=== PATIENT | female | born 1955 | race Caucasian/White ===

== ENCOUNTER 2019-09-07 08:54 | Outpatient (CLI) | payer BC, SELFPAY ==
[2019-09-07 09:37] LABS: Hematocrit 37.6 % (37.0-47.0); Hemoglobin 12.4 g/dL (12.0-15.0); Mean Corpuscular Hemoglobin 31.4 pg (26-34); Mean Corpuscular Volume 95.2 fl (80-100); Mean Platelet Volume 9.7 fl (7.4-10.4); Platelet Count Result 216 k/mm3 (150-375); Red Blood Count 3.95 M/mm3 (4.2-5.4); Red Cell Distribution Width 12.6 % (11.5-14.5); White Blood Count 5.1 K/mm3 (4.5-10.0)
[2019-09-07 09:43] LABS: Add Urine Microscopic? YES; Appearance Urine Clear (Clear); Bilirubin Urine Negative (Negative); Blood Urine 1+ (Negative); Color Urine Yellow (Yellow); Glucose Urine UA Negative (Negative); Ketones Urine Negative (Negative); Leukocyte Esterase Ur 1+ LEU/UL (NEGATIVE); Nitrate Urine Negative (Negative); Protein Urine Negative (Negative); Squamous Epithelial Cell Urine Occasional /hpf (Few); Urobilinogen Urine Negative mg/dL (<2.0); WBC Urine 0-3 /hpf (0-3)
[2019-09-07 09:46] LABS: Alanine Aminotransferase 16 U/L (4-35); Albumin Level 4.4 g/dL (3.5-5.1); Alkaline Phosphatase 70 U/L (38-126); Aspartate Amino Transferase 24 U/L (14-36); Bilirubin,Total 0.5 mg/dL (0.2-1.3); Blood Urea Nitrogen 22 mg/dL (7-17); Calcium 9.5 mg/dL (8.4-10.2); Carbon Dioxide 31 mmol/L (22-30); Chloride 97 mmol/L (98-107); Cholesterol 271 mg/dL (0-200); Estimated Glomerular Filt Rate > 60; Glucose 93 mg/dL (65-105); HDL Direct 66 mg/dL; Potassium 4.5 mmol/L (3.4-5.0); Sodium 138 mmol/L (137-145); Triglycerides 74 mg/dL (<150)
[2019-09-07 09:57] LABS: LDL Cholesterol Direct 158 mg/dL
== END 2019-09-07 08:55 | disposition home or self-care (01) ==
LOC: ANHLAB 08:57
PROVIDERS: PCP Family Medicine; Visit Provider Physician Assistant
DX: Z00.00 Encounter for general adult medical examination without abnormal findings (principal); I10 Essential (primary) hypertension; E78.5 Hyperlipidemia, unspecified; E03.9 Hypothyroidism, unspecified; L40.50 Arthropathic psoriasis, unspecified
CPT/HCPCS: 36415; 80053; 80061; 81001; 84443; 85027

== ENCOUNTER 2020-11-09 09:23 | Outpatient (CLI) | payer MEDICARE, SELFPAY ==
[2020-11-09 09:42] LABS: Hematocrit 37.3 % (37.0-47.0); Hemoglobin 12.3 g/dL (12.0-15.0); Mean Platelet Volume 9.1 fl (7.4-10.4); Platelet Count Result 228 k/mm3 (150-375); Red Blood Count 3.97 M/mm3 (4.2-5.4); Red Cell Distribution Width 13.1 % (11.5-14.5); White Blood Count 4.1 K/mm3 (4.5-10.0)
[2020-11-09 09:52] LABS: Hemoglobin A1C 5.5 % (<5.7)
[2020-11-09 09:57] LABS: Alanine Aminotransferase 16 U/L (4-35); Albumin Level 4.4 g/dL (3.5-5.1); Alkaline Phosphatase 55 U/L (38-126); Anion Gap 6 mmol/L (8-16); Aspartate Amino Transferase 25 U/L (14-36); Bilirubin,Total 0.5 mg/dL (0.2-1.3); Blood Urea Nitrogen 22 mg/dL (7-17); Calcium 9.4 mg/dL (8.4-10.2); Carbon Dioxide 32 mmol/L (22-30); Chloride 98 mmol/L (98-107); Cholesterol 257 mg/dL (0-200); Estimated Glomerular Filt Rate > 60; Glucose 97 mg/dL (65-105); HDL Direct 74 mg/dL; Potassium 4.3 mmol/L (3.4-5.0); Sodium 136 mmol/L (137-145); Triglycerides 86 mg/dL (<150)
[2020-11-09 10:11] LABS: LDL Cholesterol Direct 142 mg/dL
== END 2020-11-09 09:24 | disposition home or self-care (01) ==
PROVIDERS: PCP Family Medicine; Visit Provider Family Medicine
DX: E11.9 Type 2 diabetes mellitus without complications (principal); E78.5 Hyperlipidemia, unspecified; E03.9 Hypothyroidism, unspecified; I10 Essential (primary) hypertension; R53.83 Other fatigue; R73.01 Impaired fasting glucose
CPT/HCPCS: 36415; 80053; 80061; 83036; 84443; 85027

== ENCOUNTER 2021-01-05 11:47 | Outpatient (CLI) | payer MEDICARE, SELFPAY ==
--- NOTE | 2021-01-05 12:28 | ECG_ITS ---
Measurements Intervals [place] Rate: 73 P: 27 CO: 188 QRS: -34 QRSD: 96 T: 46 QT: 388 QTc: 430 Interpretive Statements SINUS RHYTHM LEFT AXIS DEVIATION CANNOT RULE OUT SEPTAL INFARCT, AGE INDETERMINATE BASELINE ARTIFACT- I, II, AVR, AVL ABNORMAL ECG Electronically Signed On 01-05-2021 13:11:01 [employer] by Rogelio Blanchard D.O.
[2021-01-05 12:56] LABS: Basophils Absolute Auto 0.1 K/mm3 (0.0-0.1); Eosinophils Absolute Auto 0.1 K/mm3 (0-0.3); Eosinophils Percent Auto 2.5 % (0-4.4); Hematocrit 36.6 % (37.0-47.0); Hemoglobin 12.2 g/dL (12.0-15.0); Immature Granulocyte Absolute 0.03 K/mm3 (0.00-0.031); Immature Granulocyte Percent A 0.6 % (0-0.5); Lymphocytes Absolute Auto 0.97 K/mm3 (0.9-3.2); Lymphocytes Percent Auto 18.8 % (18.3-44.2); Mean Corpuscular HGB Conc 33.3 g/dl (32-36); Mean Corpuscular Hemoglobin 31.4 pg (26-34); Mean Corpuscular Volume 94.3 fl (80-100); Mean Platelet Volume 9.4 fl (7.4-10.4); Monocytes Absolute Auto 0.6 K/mm3 (0.1-0.6); Monocytes Percent Auto 10.8 % (2.6-8.5); Neutrophils Absolute Auto 3.4 K/mm3 (1.3-6.7); Neutrophils Percent Auto 66.3 % (45.5-73.1); Platelet Count Result 215 k/mm3 (150-375); Red Blood Count 3.88 M/mm3 (4.2-5.4); Red Cell Distribution Width 12.9 % (11.5-14.5); White Blood Count 5.2 K/mm3 (4.5-10.0)
[2021-01-05 12:59] LABS: Add Urine Microscopic? YES; Appearance Urine Clear (Clear); Bilirubin Urine Negative (Negative); Blood Urine Negative (Negative); Color Urine Straw (Yellow); Glucose Urine UA Negative (Negative); Ketones Urine Negative (Negative); Leukocyte Esterase Ur Negative LEU/UL (Negative); Nitrate Urine Negative (Negative); Protein Urine Negative (Negative); Specific Grav Ur 1.021 (1.001-1.035); Urobilinogen Urine Negative mg/dL (<2.0); WBC Urine 0-3 /hpf
[2021-01-05 13:06] LABS: Albumin Level 4.5 g/dL (3.5-5.1); Anion Gap 8 mmol/L (8-16); Blood Urea Nitrogen 25 mg/dL (7-17); Calcium 9.5 mg/dL (8.4-10.2); Carbon Dioxide 32 mmol/L (22-30); Chloride 100 mmol/L (98-107); Estimated Glomerular Filt Rate > 60; Glucose 100 mg/dL (65-105); INR 0.9; Potassium 3.8 mmol/L (3.4-5.0); Prothrombin Time 12.7 Seconds (11.1-14.7); Sodium 140 mmol/L (137-145)
[2021-01-05 13:07] LABS: Partial Thromboplastin Time 28.2 SECONDS (22.3-36.8)
[2021-01-05 13:08] LABS: Urine Cotinine NEGATIVE
== END 2021-01-05 11:48 | disposition home or self-care (01) ==
LOC: ANHSURGERY 11:52
PROVIDERS: PCP Family Medicine; Visit Provider Orthopaedic Surgery
DX: M17.10 Unilateral primary osteoarthritis, unspecified knee (principal); Z01.818 Encounter for other preprocedural examination; R94.31 Abnormal electrocardiogram [ECG] [EKG]
CPT/HCPCS: 80048; 80307; 81001; 82040; 85025; 85610; 85730; 86850; 86900; 86901; 87081; 93005

== ENCOUNTER → 2021-01-09 00:59 | Outpatient (CLI) | payer MEDICARE, SELFPAY ==
[2021-01-09 19:48] LABS: SARS-CoV-2 RNA PCR Negative
== END ==
PROVIDERS: PCP Family Medicine; Visit Provider Orthopaedic Surgery
DX: Z01.812 Encounter for preprocedural laboratory examination (principal); Z20.822 Contact with and (suspected) exposure to COVID-19
CPT/HCPCS: C9803; U0003; U0005

== ENCOUNTER 2021-01-12 00:34 | Day surgery (SDC) | payer MEDICARE, SELFPAY ==
[2021-01-05 12:06] VITALS: BMI 22.4
[2021-01-12] VITALS (21 sets, daily range): BP systolic 113–138; BP diastolic 57–79; PULSE 8–95; RESP 10–20; TEMP 36–37.3; O2SAT 91–100
--- NOTE | ~2021-01-12 | XR_ITS ---
EXAMINATION: XR knee RT 2V DATE: 01/12/2021 11:37 INDICATION: Total right knee arthroplasty. Postop. TECHNIQUE: 2 views of right knee were obtained. COMPARISON: Right knee radiographs 10/26/2020 FINDINGS: There is a total right knee arthroplasty in near-anatomic alignment without patellar resurf acing. No fracture. There is gas in the knee joint and soft tissues, consistent with recent surgery. Anterior skin renee are noted. IMPRESSION: 1. Total right knee arthroplasty in near-anatomic alignment. Reviewed, dictated and finalized at location A. HER CASE FINISHER
[2021-01-12] MEDS: ACETAMINOPHEN 500 MG TABLET 1000 MG PO (06:41)
--- NOTE | 2021-01-12 07:04 | P.PNAN_ITS ---
Anes - Initial Pre Proc Eval Procedure: Operation Date: 01/12/21 08:30 Proposed Procedures p Right Total Knee Arthroplasty With Left Knee Cortisone Injection - Fawad Tracey MD Date/Time: 01/12/21 07:04 Surgeon: Fawad Tracey MD Pre Op Diagnosis: Right Knee DJD Patient Data Age: 65 Gender: F Height: 1.6 m Weight: 57.5 kg Allergies Allergy/AdvReac Type Severity Reaction Status Date / Time No Known Allergies Allergy Verified 01/12/21 06:39 Home Medications Medication Instructions Recorded Confirmed Type levothyroxine 50 mcg tablet 50 mcg PO DAILY #90 tablet 11/19/20 01/12/21 Rx lisinopril 10 1 tablet PO DAILY #90 tablet 11/19/20 01/12/21 Rx mg-hydrochlorothiazide 12.5 mg tablet chlorhexidine gluconate 4 % 1 applic TOPICAL ONCE #237 ml 12/14/20 01/05/21 Rx topical liquid Patient hx anesthesia problems: none Family hx anesthesia problems: none PMFSH Past Medical History Medical History Actinic keratitis Arthritis Benign microscopic hematuria Bilateral knee pain Degenerative joint disease of knee H/O seborrheic keratosis HLD (hyperlipidemia) Hypertension Hypothyroidism Wears glasses Surgical History Surgical History History of abdominal hysterectomy History of surgical amputation of finger of right hand Surgery Performed by [facility]. Orthopedic [facility] Family History Family History Mother Hypertension Other Arthritis Depression Social History Social History Smoking status: Never smoker Second hand tobacco smoke exposure: No Alcohol intake: never Substance use: never Substance use type: does not use Living arrangements: with family Additional living arrangements comments: LIVES WITH 7 ADOPTIVE [address] Gender identity (if verbalized by the patient): Female Spiritual care concerns: No Anes - Eval Final PreProcedure Day of Procedure 01/12/21 07:04 Patient weight: normal Heart: regular rate and rhythm Lungs: clear to auscultation and normal air movement Airway: Mallampati scale class II Neurological: alert and oriented Last oral intake: >/= 8 hours ASA classification: II Emergent: no Anesthetic plan: proceed Anesthesia type and monitoring: general LMA Informed Consent: The patient's anesthetic plan and its attendant risks and benefits were discussed with the patient/family/POA. Questions were solicited and answers provided to the satisfaction of the patient/family/POA.
[2021-01-12] MEDS: LACTATED RINGERS 1,000 ML 30 ML IV CONT ×2 (07:06→11:30)
[2021-01-12] MEDS: TRANEXAMIC ACID 1,000MG/ISO100 1,000 MG/100 ML BAG 200 MG IVPB (08:21)
--- NOTE | 2021-01-12 08:21 | SUR.PREOP ---
Up to bathroom.
--- NOTE | 2021-01-12 08:36 | WPDHPUPDATE1 ---
History and Physical Update Update Date/Time: 01/12/21 08:36 History and Physical has been reviewed, including an updated exam of the patient. There are NO changes in the patient's condition. Risks, benefits, and alternatives have been discussed and questions answered. Patient agrees to proceed with procedure.
[2021-01-12] MEDS: ceFAZolin 2 GM/D5W 50 ML 2 GM/50 ML BAG IVPB ×2 (08:56→17:08)
--- NOTE | 2021-01-12 08:57 | WPDANESPNB ---
Anes - Peripheral Nerve Block Date/Time: 01/12/21 08:57 I have discussed with the patient/family/POA the placement of a peripheral nerve block for post-operative pain management, including associated risks, benefits, complications, and side effects. Alternative methods of post-operative analgesia were detailed. Questions were solicited and answers provided to the satisfaction of the patient/family/POA. Time-Out: A pre-procedural Time-Out was completed immediately before starting the procedure and confirmed: Patient Identification, Site, Procedure, Patient Position and the Availability of Requisite Equipment. Clinical Indications: Acute post-operative pain management requested by the operative surgeon. Nerve Block Insertion Note Anes-nerve block: adductor canal right Patient position: supine Skin prep: chlorhexidine Needle: 22 gauge, stimulating, insulated echogenic needle. Needle length: 80 mm Technique: ultrasound Technique comment: in plane Injectate: bupivacaine 0.25% with epi 5 mcg/ml (30cc) Observations: tolerated well Complications: none Procedure start time:: 845 Procedure end time:: 850
[2021-01-12] MEDS: methylPREDNISolone ACETATE 80 MG/ML VIAL IM (09:12)
[2021-01-12] MEDS: GENTAMICIN BONE CEMENT REFOBACIN 1 EACH TOPICAL (10:09)
[2021-01-12] MEDS: ceFAZolin SODIUM 1 GM VIAL IV PUSH (10:38)
--- NOTE | 2021-01-12 11:27 | PM.PROC ---
Procedure Note - Detailed Date of procedure: 01/12/21 Pre-op diagnosis: Right Knee DJD, LEFT KNEE DJD Post-op diagnosis: same Procedure performed: RIGHT TKA, LEFT KNEE INJECTION Description of procedure: THE LEFT KNEE WAS PREPPED STERILE AND THEN 1cc DEPO MEDROL 80MG, AND 5cc MARCAINE 0.5% WAS INJECTED INTO THE LEFT KNEE. THE RIGHT KNEE WAS THEN PREPPED AND DRAPED IN THE STERILE FASHION. A MIDLINE SKIN INCISION WAS MADE. A MEDIAL PARAPATELLAR ARTHROTOMY WAS MADE. THE PATELLA WAS EVERTED. THERE WAS TRICOMPARTMENT DJD. THERE WAS MINIMAL PATELLA DJD. AN INTRAMEDULLARY RACHEL WAS PLACED IN THE FEMUR. A DISTAL FEMORAL CUT WAS MADE IN 5 DEGREES OF VALGUS REMOVING APPROXIMATELY 9 MM OF BONE FROM THE DISTAL FEMUR. THE FEMUR WAS SIZED TO 60. A 60 FEMORAL CUTTING BLOCK WAS PLACED IN 3 DEGREES OF EXTERNAL ROTATION AND IN ALIGNMENT WITH PRIMITIVO'S LINE AND THE TRANSEPICONDYLAR AXIS. ANTERIOR POSTERIOR AND CHAMFER CUTS WERE MADE. THE CUTS WERE EXCELLENT. NEXT AN INTRAMEDULLARY CUTTING GUIDE WAS PLACED IN THE TIBIA. A TRANS TIBIAL CUT WAS MADE ALONG THE LONG AXIS OF THE TIBIA. APPROXIMATELY 10 MM OF BONE WAS REMOVED FROM THE HIGH SIDE OF THE TIBIA. THE TIBIA WAS THEN PLANED TO A SMOOTH SURFACE. POSTERIOR FEMORAL OSTEOPHYTES WERE REMOVED FROM THE FEMORAL CONDYLES. A 71 TIBIAL TRIAL WAS PLACED IN ALIGNMENT WITH THE 1/3 MEDIAL ASPECT OF THE TIBIAL TUBERCLE. THEN A 60 FEMORAL TRIAL COMPONENT WAS PLACED. BOTH HAD EXCELLENT FIT. EVENTUALLY A 12 MM POLYETHYLENE TRIAL COMPONENT WAS PLACED. THE KNEE WAS TAKEN THROUGH A RANGE OF MOTION. THE KNEE CAME OUT TO FULL EXTENSION. THERE WAS NO ABNORMAL TILT TO THE PATELLA. THERE WAS GOOD A/P AND VARUS/VALGUS STABILITY. THERE WAS NO EXCESSIVE ROLL BACK WITH FLEXION. THE TRIAL COMPONENTS WERE REMOVED. THEN A 60 FEMORAL COMPONENT AND 71 TIBIAL COMPONENT WITH A 12 CR POLYETHYLENE COMPONENT WERE CEMENTED INTO PLACE. THE IMPLANTS WERE FLUSH WITH THE CUT BONE SURFACES. THE KNEE WAS TAKEN THROUGH A ROM AGAIN AND FOUND TO BE STABLE WITH NO PATELLA TILT NO EXCESSIVE ROLL BACK WITH FLEXION AND GOOD STABILITY WITH COMPLETE AND FULL EXTENSION. THE KNEE WAS IRRIGATED WITH STERILE BETADINE AND WATER FOR ABOUT 3 MINUTES. THE BLEEDERS WERE CAUTERIZED. THE ARTHROTOMY WAS REPAIRED WITH NUMBER 1 VICRYL. THE SUB CUTANEOUS LAYER WITH 2-0 VICRYL AND THE SKIN WITH MERISSA. THE WOUND WAS WASHED AND A STERILE DRESSING WAS APPLIED. PATIENT WAS EXTUBATED. Anesthesia: GETA Surgeon: Fawad Tracey MD Estimated blood loss (mL): 100 Complications: No immediate complications Condition: stable Disposition: PACU
[2021-01-12] MEDS: HYDROmorphone HCL INJ (*CRX) 1 MG/ML SYR 0.25 MG IV PUSH ×2 (12:23→12:28)
[2021-01-12] MEDS: ONDANSETRON INJ 4 MG/2 ML VIAL IV PUSH (12:45)
[2021-01-12] MEDS: HALOPERIDOL LACTATE 5 MG/ML VIAL 1 MG IV PUSH (13:38)
[2021-01-12] MEDS: SCOPOLAMINE 1.5 MG PATCH TRANSDERM (13:38)
--- NOTE | 2021-01-12 14:54 | PCPTNOTE ---
Patient still in PACU, nauseated and will be admitted later this afternoon, will wait to perform PT evaluation until tomorrow morning.
--- NOTE | 2021-01-12 15:10 | ADMGEN ---
This patient, Karley Dang, was admitted to 2 Medical Room 260-. Patient/family oriented to hospital policies and general routines including ID bracelet, bed and alarms, visiting hours, pain management, procedures, bathroom and other care routines, personal items, smoking policy, room service/diet, and visiting hours. Information on how to activate the Rapid Response Team has been discussed. Patient/Family are encouraged to report perceived risks to care and to ask questions if they do not understand what they are told or what they should do.
[2021-01-12] MEDS: oxyCODONE HCL (*CRX) 5 MG TAB IR PO (15:59)
[2021-01-12] MEDS: diazePAM (*CRX) 5 MG TABLET PO (17:07)
[2021-01-12] MEDS: DOCUSATE SODIUM 100 MG CAPSULE PO (17:07)
[2021-01-12] MEDS: CELECOXIB 200 MG CAPSULE PO (17:08)
[2021-01-12] MEDS: FAMOTIDINE 20 MG TABLET PO (19:36)
[2021-01-12] MEDS: oxyCODONE HCL (*CRX) 2.5 MG TAB IR 7.5 MG PO (19:36)
[2021-01-13] MEDS: ceFAZolin 2 GM/D5W 50 ML 2 GM/50 ML BAG IVPB ×2 (00:15→08:21)
[2021-01-13] MEDS: oxyCODONE HCL (*CRX) 2.5 MG TAB IR 7.5 MG PO ×2 (00:48→06:05)
[2021-01-13 04:00] VITALS: BP 132/65; PULSE 91; RESP 18; TEMP 36.6; O2SAT 98
[2021-01-13 05:50] LABS: Basophils Percent Auto 0.4 % (0.2-1.2); Eosinophils Percent Auto 0.2 % (0-4.4); Hematocrit 31.6 % (37.0-47.0); Hemoglobin 10.5 g/dL (12.0-15.0); Immature Granulocyte Absolute 0.02 K/mm3 (0.00-0.031); Immature Granulocyte Percent A 0.2 % (0-0.5); Lymphocytes Percent Auto 10.5 % (18.3-44.2); Mean Corpuscular HGB Conc 33.2 g/dl (32-36); Mean Corpuscular Hemoglobin 30.5 pg (26-34); Mean Corpuscular Volume 91.9 fl (80-100); Mean Platelet Volume 9.6 fl (7.4-10.4); Monocytes Percent Auto 11.7 % (2.6-8.5); Neutrophils Absolute Auto 6.6 K/mm3 (1.3-6.7); Platelet Count Result 198 k/mm3 (150-375); Red Blood Count 3.44 M/mm3 (4.2-5.4); Red Cell Distribution Width 12.7 % (11.5-14.5); White Blood Count 8.6 K/mm3 (4.5-10.0)
[2021-01-13] MEDS: LEVOTHYROXINE SODIUM 50 MCG TABLET PO (06:02)
[2021-01-13 06:08] LABS: Anion Gap 4 mmol/L (8-16); Blood Urea Nitrogen 15 mg/dL (7-17); Calcium 8.5 mg/dL (8.4-10.2); Carbon Dioxide 31 mmol/L (22-30); Chloride 97 mmol/L (98-107); Estimated CRCL calculation 57 ml/min; Estimated Glomerular Filt Rate > 60; Glucose 123 mg/dL (65-105); Potassium 3.9 mmol/L (3.4-5.0); Sodium 132 mmol/L (137-145)
--- NOTE | 2021-01-13 08:00 | WPDANESPN ---
Anes - Prog Note Post-Op Date/Time: 01/13/21 08:00 Cardiovascular status: normal Respiratory status: normal Airway patency: baseline Mental status: baseline Post-Op hydration status: normal Vital Signs: Last Vital Signs Temp 36.6 C 01/13/21 04:00 Pulse 91 01/13/21 04:00 Resp 18 01/13/21 04:00 BP 132/65 01/13/21 04:00 Pulse Ox 98 01/13/21 04:00 Pain Score (VAS): 02/13 I/O: Intake & Output 01/12/21 01/13/21 01/13/21 23:59 07:59 15:59 Intake Total 650 200 Output Total 600 500 Balance 50 -300 Laboratory Tests 01/13/21 05:02 01/13/21 05:02 01/13/21 01/13/21 05:02 05:02 WBC 8.6 RBC 3.44 L Hgb 10.5 L Hct 31.6 L MCV 91.9 MCH 30.5 MCHC 33.2 RDW 12.7 Plt Count 198 MPV 9.6 Immature Gran % (Auto) 0.2 Neut % (Auto) 77.0 H Lymph % (Auto) 10.5 L [place] % (Auto) 11.7 H Eos % (Auto) 0.2 Baso % (Auto) 0.4 Lymph # (Auto) 0.90 [place] # (Auto) 1.0 H Eos # (Auto) 0.0 Baso # (Auto) 0.0 Abs Immat Gran (auto) 0.02 Absolute Neuts (auto) 6.6 Absolute Nucleated RBC 0.0 Nucleated RBC % 0.0 Sodium 132 L Potassium 3.9 Chloride 97 L Carbon Dioxide 31 H Anion Gap 4 L BUN 15 D Creatinine 0.70 Estim Creat Clear Calc 57 Estimated GFR > 60 Glucose 123 H Calcium 8.5 Post-procedural complaints: nausea Patient Feedback: Patient satisfied with anesthetic care.
[2021-01-13] MEDS: ASPIRIN 325 MG ENTERIC TABLET 650 MG PO (08:20)
[2021-01-13] MEDS: diazePAM (*CRX) 5 MG TABLET PO (08:20)
[2021-01-13] MEDS: hydroCHLOROthiazide 12.5 MG CAPSULE PO (08:20)
[2021-01-13] MEDS: lisinopriL 10 MG TABLET PO (08:20)
[2021-01-13] MEDS: DOCUSATE SODIUM 100 MG CAPSULE PO (08:20)
[2021-01-13] MEDS: FAMOTIDINE 20 MG TABLET PO (08:20)
[2021-01-13] MEDS: CELECOXIB 200 MG CAPSULE PO (08:20)
[2021-01-13] MEDS: ACETAMINOPHEN 500 MG TABLET 1000 MG PO ×2 (09:19→14:58)
[2021-01-13 09:49] VITALS: O2SAT 99
[2021-01-13 10:00] VITALS: BP 136/60; PULSE 79; RESP 18; TEMP 37.1; O2SAT 100
[2021-01-13] MEDS: oxyCODONE/ACETAMINOPHEN (*CRX) 5-325 MG TABLET 1 TABLET PO ×2 (11:32→17:31)
--- NOTE | 2021-01-13 12:43 | PCPTNOTE ---
Changed frequency on order clarification from OD 5-7 days/week to BID 5-7 days/week to correct frequency for ortho pt.
[2021-01-13 12:55] VITALS: BP 125/54; PULSE 82; RESP 16; TEMP 36.9; O2SAT 98
--- NOTE | 2021-01-13 17:28 | PM.PNORT ---
Progress Note: A&P Additional Plan POD 1 DOING WELL. OK TO DC HOME F/U IN 2 WEEKS. Subjective Subjective Date/Time Seen: 01/13/21 17:28 POD 1 DOING WELL, GOOD PROGRESS WITH PT, NO CALF PAIN Review of Systems Review of Systems: All systems reviewed & are unremarkable except as noted in HPI and below Exam Extrem: Other: VSS AFEBRILE DRESSING DRY NV INTACT NEG HOMANS SIGN, CALF SOFT NON TENDER Objective Data Vital Signs Vital Signs: Vital Signs - 24 hr 01/12/21 20:00 01/12/21 23:58 01/13/21 04:00 Temperature 36.3 C L 36.7 C 36.6 C Pulse Rate 88 95 91 Respiratory Rate 16 16 18 Blood Pressure 137/67 129/61 132/65 Pulse Oximetry 97 100 98 01/13/21 09:49 01/13/21 10:00 01/13/21 12:55 Temperature 37.1 C 36.9 C Pulse Rate 79 82 Respiratory Rate 18 16 Blood Pressure 136/60 125/54 L Pulse Oximetry 99 100 98 Intake/Output Intake/Output: Intake & Output 01/10/21 01/11/21 01/12/21 01/13/21 23:59 23:59 23:59 23:59 Intake Total 1500 490 Output Total 600 500 Balance 900 -10 Meds/Results Medications: Active Medications Generic Name Dose Route Start Last Admin Trade Name Freq PRN Reason Stop Dose Admin Acetaminophen 1,000 mg 01/12/21 15:31 01/13/21 14:58 Acetaminophen 500 Mg Tablet PO 1,000 mg Q6H PRN Administration Pain Rated 1-3 Aspirin 650 mg 01/13/21 09:00 01/13/21 08:20 Aspirin 325 Mg Enteric Tablet PO 650 mg DAILY BERT Administration Celecoxib 200 mg 01/12/21 17:00 01/13/21 08:20 Celecoxib 200 Mg Capsule PO 200 mg BIDWM BERT Administration Diazepam 5 mg 01/12/21 15:31 01/13/21 08:20 Diazepam (*Crx) 5 Mg Tablet PO 5 mg Q8H PRN Administration Spasms Diphenhydramine HCl 25 mg 01/12/21 15:31 Diphenhydramine Hcl Inj 50 Mg/Ml Vial IV PUSH Q6H PRN Itching Docusate Sodium 100 mg 01/12/21 17:00 01/13/21 08:20 Docusate Sodium 100 Mg Capsule PO 100 mg BID BERT Administration Famotidine 20 mg 01/12/21 21:00 01/13/21 08:20 Famotidine 20 Mg Tablet PO 20 mg Q12HR BERT Administration Hydrochlorothiazide 12.5 mg 01/12/21 09:00 01/13/21 08:20 Hydrochlorothiazide 12.5 Mg Capsule PO 12.5 mg DAILY BERT Administration Levothyroxine Sodium 50 mcg 01/13/21 06:30 01/13/21 06:02 Levothyroxine Sodium 50 Mcg Tablet PO 50 mcg DAILY@0630 BERT Administration Lisinopril 10 mg 01/12/21 09:00 01/13/21 08:20 Lisinopril 10 Mg Tablet PO 02/12/21 09:01 10 mg DAILY BERT Administration Naloxone HCl 0.1 mg 01/12/21 15:31 Naloxone Hcl 0.4 Mg/Ml Vial IV PUSH Q2M PRN Opiate Reversal Ondansetron HCl 4 mg 01/12/21 15:31 Ondansetron Inj 4 Mg/2 Ml Vial IV PUSH Q4H PRN Nausea And Vomiting Oxycodone HCl 5 mg 01/12/21 11:36 01/12/21 15:59 Oxycodone Hcl (*Crx) 5 Mg Tab Ir PO 5 mg ONCE PRN Administration Pain Rated 7-10 Oxycodone HCl 7.5 mg 01/12/21 15:31 01/13/21 06:05 Oxycodone Hcl (*Crx) 2.5 Mg Tab Ir PO 7.5 mg Q4H PRN Administration Pain Rated 7-10 Oxycodone/Acetaminophen 1 tablet 01/12/21 15:31 01/13/21 11:32 Oxycodone/Acetaminophen (*Crx) 5-325 Mg Tablet PO 1 tablet Q4H PRN Administration Pain Rated 4-6 Radiology Results: ITS Impressions Knee X-Ray 01/12/21 12:02 IMPRESSION: 1. Total right knee arthroplasty in near-anatomic alignment. Labs Labs: Laboratory Results - last 24 hr 01/13/21 01/13/21 05:02 05:02 WBC 8.6 RBC 3.44 L Hgb 10.5 L Hct 31.6 L MCV 91.9 MCH 30.5 MCHC 33.2 RDW 12.7 Plt Count 198 MPV 9.6 Immature Gran % (Auto) 0.2 Neut % (Auto) 77.0 H Lymph % (Auto) 10.5 L [place] % (Auto) 11.7 H Eos % (Auto) 0.2 Baso % (Auto) 0.4 Lymph # (Auto) 0.90 [place] # (Auto) 1.0 H Eos # (Auto) 0.0 Baso # (Auto) 0.0 Abs Immat Gran (auto) 0.02 Absolute Neuts (auto) 6.6 Absolute Nucleated RBC 0.0 Nucleated RBC % 0.0 Sodium 132 L Potassium 3.9 [place]
--- NOTE | 2021-01-13 17:31 | PM.DS ---
DS: Admitting Diagnosis Admitting Diagnosis Admitting Diagnosis: RIGHT KNEE DJD DS: Discharge Diagnosis Discharge Diagnosis (1) Aftercare following knee joint replacement surgery: Qualifiers: Laterality: right Qualified Code(s): Z47.1 - Aftercare following joint replacement surgery; Z96.651 - Presence of right artificial knee joint Code(s): Z47.1 - Aftercare following joint replacement surgery; Z96.659 - Presence of unspecified artificial knee joint Status: Acute DS: Summary Hospital Course Reason for hospitalization: RIGHT TKA Hospital Course: PATIENT WAS ADMITTED FOR PAIN CONTROL AFTER KNEE REPLACEMENT. SHE DID WELL WITH PAIN MEDS AND ALSO WITH PT. SHE REMAINED STABLE AND WAS READY FOR DC ON POD 1. SHE HAD NO SIGN OF INFECTION, HER DRESSING WAS CHANGED BY MY SELF. SHE HAD NO OTHER COMPLAINTS. Time spent discussing smoking cessation with patient: 3 to 10 minutes Status at Discharge Functional status at discharge: uses cane/walker Overall status at discharge: patient is not back to baseline Time Spent with Patient Time attestation: Total time spent providing and/or coordinating discharge services: Time spent: Less than 30 minutes DS: Data Data Completed and Pending Labs on day of discharge: Labs from last 24 hours 01/13/21 01/13/21 05:02 05:02 WBC 8.6 RBC 3.44 L Hgb 10.5 L Hct 31.6 L MCV 91.9 MCH 30.5 MCHC 33.2 RDW 12.7 Plt Count 198 MPV 9.6 Immature Gran % (Auto) 0.2 Neut % (Auto) 77.0 H Lymph % (Auto) 10.5 L [place] % (Auto) 11.7 H Eos % (Auto) 0.2 Baso % (Auto) 0.4 Lymph # (Auto) 0.90 [place] # (Auto) 1.0 H Eos # (Auto) 0.0 Baso # (Auto) 0.0 Abs Immat Gran (auto) 0.02 Absolute Neuts (auto) 6.6 Absolute Nucleated RBC 0.0 Nucleated RBC % 0.0 Sodium 132 L Potassium 3.9 Chloride 97 L Carbon Dioxide 31 H Anion Gap 4 L BUN 15 D Creatinine 0.70 Estim Creat Clear Calc 57 Estimated GFR > 60 Glucose 123 H Calcium 8.5 Discharge Plan Discharge Patient Disposition: Home Health Service Discharge Instructions: HOME PT TO EVALUATE AND TREAT PATIENT DRESSING CHANGE PER HOME NURSE AT POD 2 THEN LEAVE FOR 5 DAYS THEN CHANGE. KEEP ON TILL POD 14 AND STAPLE REMOVAL Per Care Coordination: [facility] has been arranged and will contact you prior to their first visit. [facility] can be contacted at [phone]. Patient Instructions: Antibiotic Form, Pain Management (DC), Joint Replacement Surgery (DC), Knee Replacement (DC) Stand Alone Forms: General Discharge Information, General Discharge Instructions Follow-up/Referrals: Fawad Tracey MD [Physician] - 3 Weeks Discharge Medications: New oxycodone-acetaminophen [Percocet] 7.5-325 mg tablet 1 tablet PO Q6H PRN (Reason: pain) Qty: 60 RF: 0 diazepam [Valium] 5 mg tablet 5 mg PO BID PRN (Reason: muscle spasm) Qty: 30 RF: 0 celecoxib [Celebrex] 200 mg capsule 200 mg PO BID PRN (Reason: pain) Qty: 30 RF: 0 Continued lisinopril-hydrochlorothiazide 10-12.5 mg tablet 1 tablet PO DAILY Qty: 90 RF: 2 levothyroxine 50 mcg tablet 50 mcg PO DAILY Qty: 90 RF: 2 chlorhexidine gluconate [Hibiclens] 4 % liquid 1 applic topical ONCE Qty: 237 RF: 0
== END 2021-01-13 18:15 | disposition home health service (06) ==
LOC: ANHSURGERY 11:48 → ANH2MED 14:57
PROVIDERS: PCP Family Medicine; Visit Provider Orthopaedic Surgery
PROC: (CPT 27447; principal; 2021-01-12 08:30)
DX: M17.0 Bilateral primary osteoarthritis of knee (principal); G89.18 Other acute postprocedural pain; I10 Essential (primary) hypertension; E78.5 Hyperlipidemia, unspecified; E03.9 Hypothyroidism, unspecified
CPT/HCPCS: 27447; 20610; 64447; 36415; 73560; 80048; 85025; 97110; 97116; 97161; 97165; 97530; A9270; C1713; C1776; J0171; J0690; J1040; J1100; J1170; J1630; J2250; J2270; J2370; J2405; J2704; J2795; J3010; J7120

== ENCOUNTER 2021-06-05 10:01 | Emergency (ER) | payer MEDICARE, SELFPAY ==
[2021-06-05 10:09] VITALS: BP 132/70; PULSE 96; RESP 20; TEMP 36.6; O2SAT 100
--- NOTE | 2021-06-05 10:33 | ED.SKABFB ---
HPI - Skin/Abscess/Foreign Bdy General Chief complaint: Skin/Abscess/Foreign Body Stated complaint: RASH History of Present Illness HPI narrative: The patient, previously mostly healthy on routine meds, presents with skin eruption. Patient states she has 1/2-week history of truncal rash that is pink, itchy bordering on painful. No fever, sore throat, travel history, insect bite, new meds [only on levothyroxine, lisinopril]; symptoms are mild, worse with scratching. Its now beginning to expand up and down with impetiginous/crusting component on her chest/anterior trunk. Discussed causes [infectious, acquired, allergic, etc.] and will treat broadly Related Data Allergies Allergy/AdvReac Type Severity Reaction Status Date / Time No Known Allergies Allergy Verified 03/15/21 14:10 Review of Systems Review of Systems: General/Constitutional: No weight loss,fever Eyes: N0: Redness,discharge Ears/Nose/Throat: No: Epistaxis,ear discharge Respiratory: Denies: Hemoptysis Gastrointestinal: No Vomiting, Bleeding-rectal Skin: No Lumps, REPORTS eruption Neurologic: No Focal Weakness,Sz Hematologic: Denies: Petechiae/Purpura Psychiatric: No: Suicida ideationl All Other Systems: Reviewed and Negative [facility] Past Medical History Medical History Actinic keratitis Aftercare following right knee joint replacement surgery Arthritis Benign microscopic hematuria Bilateral knee pain Degenerative joint disease of knee H/O seborrheic keratosis HLD (hyperlipidemia) Hypertension Hypothyroidism Wears glasses Surgical History Surgical History History of abdominal hysterectomy History of surgical amputation of finger of right hand Surgery Performed by [facility]. Orthopedic group S/P total knee arthroplasty right S/P total knee replacement Family History Family History Mother Hypertension Other Arthritis Depression Social History Social History (Updated 03/15/21 @ 14:11 by Kandi Barrera MA) Smoking status: Never smoker Second hand tobacco smoke exposure: No Alcohol intake: never Substance use: never Substance use type: does not use Additional living arrangements comments: LIVES WITH 7 ADOPTIVE CHILDREN Gender identity (if verbalized by the patient): Female Spiritual care concerns: No Comments At time of signature, agree with nursing past medical, surgical, social and family history. There is no relevant family history pertinent to the presenting complaint Exam Narrative: General Appearance: Well nourished, Normocephalic Eye: PERRLA, Conjunctiva clear Ear: External ear normal Nose: Normal nose, Nare clear Mouth/Throat: Normal appearing Neck Exam: Supple Respiratory: Airway patent, No respiratory distress Musculoskeletal: Moves all extremities, Non tender Spine/Back: Normal ROM Skin: Warm, Dry; blanching maculopapular eruption on trunk and extremities with impetiginous component and crusting on chest Neurological: A&O x3 Normal affect Course Vital Signs Vital signs: Vital Signs Temperature 97.9 F 06/05/21 10:09 Pulse Rate 96 06/05/21 10:09 Respiratory Rate 20 06/05/21 10:09 Blood Pressure 132/70 06/05/21 10:09 Pulse Oximetry 100 06/05/21 10:09 Temperature 97.9 F 06/05/21 10:09 Pulse Rate 96 06/05/21 10:09 Respiratory Rate 20 06/05/21 10:09 Blood Pressure 132/70 06/05/21 10:09 Pulse Oximetry 100 06/05/21 10:09 Discharge Plan Discharge Clinical Impression: Acute eruption of skin Patient Disposition: Home, Self-Care Condition: Stable Instructions: Antibiotic Form, Acute Rash (ED) Additional Instructions: Keep photo log of area Take clindamycin with food, antacid and/or probiotic; stop if diarrhea occurs Prescriptions: New clindamycin HCl 300 mg
== END 2021-06-05 10:43 | disposition home or self-care (01) ==
PROVIDERS: Emergency Provider Emergency Medicine; PCP Family Medicine
DX: R21 Rash and other nonspecific skin eruption (principal); M19.90 Unspecified osteoarthritis, unspecified site; M17.10 Unilateral primary osteoarthritis, unspecified knee; E78.5 Hyperlipidemia, unspecified; I10 Essential (primary) hypertension; E03.9 Hypothyroidism, unspecified; Z96.651 Presence of right artificial knee joint
CPT/HCPCS: 99213; G0463

== ENCOUNTER 2021-09-19 19:55 | Observation (INO) | payer MEDICARE, SELFPAY ==
[2021-09-19] VITALS (11 sets, daily range): BP systolic 116–137; BP diastolic 58–77; PULSE 86–106; RESP 12–20; TEMP 36.1–36.3; O2SAT 99–100
--- NOTE | ~2021-09-19 | CT_ITS ---
EXAMINATION: CT abdomen pelvis w con EXAM DATE: 09/19/2021 21:40 INDICATION: Abdominal pain. Nausea vomiting diarrhea. Rectal bleeding. TECHNIQUE: Spiral CT of the abdomen and pelvis was performed following intravenous injection of 100 m L Omnipaque 350. Axial, coronal and sagittal images of the abdomen and pelvis were reviewed. The do se-length product (DLP) for this examination was 311.24 mGy-cm. The exposure was tailored according to patient size (auto mA exposure control), and iterative reconstruction (ASIR) was used as additiona l dose reduction technique. Comparison is made to prior examination from 08/28/2018. FINDINGS: The liver, spleen, adrenal glands and pancreas are unremarkable. Gallbladder is unremarkab le. No biliary obstruction. Portal and splenic veins are patent. There are prominent venous varicos ities at the left renal hilum more pronounced than in 2018. Kidneys enhance symmetrically. There is no hydronephrosis. The uterus is not identified and has likely been surgically resected. Suspect sm all amount of pelvic prolapse. The bladder is unremarkable. There is no retroperitoneal or pelvic l ymphadenopathy. There is mild scattered arteriosclerotic disease. The appendix is not positively visualized. There is no pericecal inflammatory change to suggest appe ndicitis. The stomach and small bowel are unremarkable. There is severely edematous splenic flexur e and descending colonic wall without pneumatosis. Mild edema of these rectosigmoid colon. Appearance is consistent with colitis, most likely infectious but recommend correlating with lactate levels. No free intraperitoneal gas. The heart is normal in size. There are no pericardial or pleural effu sions. The lung bases are unremarkable. There are no osteoblastic or osteolytic lesions identified. IMPRESSION: 1. Left hemicolonic colitis. 2. Probable mild pelvic prolapse. 3. Left renal perihilar varices. Reviewed, dictated and finalized at location B. [facility]
[2021-09-19 20:29] LABS: Hematocrit 39.5 % (37.0-47.0); Hemoglobin 13.4 g/dL (12.0-15.0); Mean Corpuscular HGB Conc 33.9 g/dl (32-36); Mean Corpuscular Hemoglobin 31.2 pg (26-34); Mean Corpuscular Volume 91.9 fl (80-100); Mean Platelet Volume 9.2 fl (7.4-10.4); Platelet Count Result 240 k/mm3 (150-375); Red Cell Distribution Width 13.2 % (11.5-14.5)
[2021-09-19 20:38] LABS: INR 0.9
[2021-09-19 20:39] LABS: Partial Thromboplastin Time 24.8 SECONDS (22.3-36.8)
[2021-09-19 20:53] LABS: Band Neutrophils Percent 4 % (0-6); Eosinophils Absolute Manual 0.08 K/mm3 (0.02-0.5); Eosinophils Percent Manual 1 % (0-4); Monocytes Absolute Manual 0.32 K/mm3 (0.1-0.90); Monocytes Percent Manual 4 % (3-9); Neutrophils Percent Manual 86 % (46-73); Platelet Estimate Adequate (Adequate); Total Cells Counted 100
[2021-09-19 20:55] LABS: Alanine Aminotransferase 18 U/L (4-35); Alkaline Phosphatase 84 U/L (38-126); Anion Gap 11 mmol/L (8-16); Aspartate Amino Transferase 29 U/L (14-36); Bilirubin,Total 0.8 mg/dL (0.2-1.3); Blood Urea Nitrogen 23 mg/dL (7-17); Calcium 10.4 mg/dL (8.4-10.2); Carbon Dioxide 27 mmol/L (22-30); Chloride 100 mmol/L (98-107); Estimated CRCL calculation 43 ml/min; Estimated Glomerular Filt Rate > 60; Glucose 113 mg/dL (65-110); Lipase 56 U/L (23-300); Potassium 4.6 mmol/L (3.4-5.0); Sodium 138 mmol/L (137-145)
--- NOTE | 2021-09-19 21:16 | ED.GENADULT ---
HPI - General Adult General Chief complaint: Nausea/Vomiting/Diarrhea Stated complaint: abd pain, vomiting, bloody diarrhea Time Seen by Provider: 09/19/21 21:09 Source: RN notes reviewed History of Present Illness HPI narrative: Patient presents emergency department from home for abdominal pain. Patient states that symptoms again approximate 1 PM today. States she has diffuse abdominal pain across the mid abdomen described as cramping. States the pain does not radiate. Associated with numerous episodes of nausea vomiting as well as diarrhea that is bloody in nature. Patient states that the stool is maroon with clots she denies being on any blood thinner she denies any fevers or chills chest pain shortness of breath or any other symptoms. States she not taking medication for the symptoms at home Related Data Allergies Allergy/AdvReac Type Severity Reaction Status Date / Time No Known Allergies Allergy Verified 09/19/21 21:18 Review of Systems Review of Systems: Gen.: Denies fevers or chills ENT: Denies congestion Respiratory: Denies shortness of breath or cough CV: Denies chest pain or palpitations GI: See HPI denies burning, urgency, frequency or hematuria Musculoskeletal: Denies back pain or muscle pain Neuro: Denies numbness, tingling, weakness or focal weakness Skin: Denies rash Except as documented, all other systems reviewed and negative [facility] Past Medical History Medical History Actinic keratitis Aftercare following right knee joint replacement surgery Arthritis Benign microscopic hematuria Bilateral knee pain Degenerative joint disease of knee H/O seborrheic keratosis HLD (hyperlipidemia) Hypertension Hypothyroidism Left knee DJD Wears glasses Surgical History Surgical History History of abdominal hysterectomy History of surgical amputation of finger of right hand Surgery Performed by [facility]. Orthopedic group S/P total knee arthroplasty right S/P total knee replacement Family History Family History Mother Hypertension Other Arthritis Depression Social History Social History Second hand tobacco smoke exposure: No Alcohol intake: never Substance use: never Substance use type: does not use Additional living arrangements comments: LIVES WITH 7 ADOPTIVE CHILDREN Gender identity (if verbalized by the patient): Female Spiritual care concerns: No Exam Narrative: APPEARANCE: No acute distress, nontoxic, resting in bed HEENT: Normocephalic, atraumatic, OMM RESPIRATORY: No respiratory distress, clear to auscultation bilaterally with no rhonchi wheezing or rales CARDIOVASCULAR: RRR s murmur ABDOMINAL: Soft nondistended diffusely tender palpation no rebound or guarding Rectal: No hemorrhoids or fissures no active bleeding, maroon stool that is Hemoccult positive in rectal vault MUSCULOSKELETAl: Moves all extremities. No clubbing, cyanosis or edema. NEURO: Awake and alert. Following commands, speech normal, no focal deficits SKIN:: Warm, dry. Normal Color PSYCHIATRIC: Normal affect/mood Course Course Emergency Course: Discussed with Dr. Cast presentation work-up agrees with admission agrees with starting patient on Zosyn for colitis Discussed with Dr. Weems presentation work-up. Agrees with admission at this time Discussed with patient and family results of workup and diagnosis. Discussed need for admission. Patient and family understand and agree to current treatment plan Vital Signs Vital signs: Vital Signs Temperature 97 F L 09/19/21 20:09 Pulse Rate 104 H 09/19/21 20:09 Respiratory Rate 18 09/19/21 20:09 Blood Pressure 137/77 09/19/21 20:09 Pulse Oximetry 100 09/19/21 20:09 Temperature 97.3 F L 09/19/21 21:16 Pul
[2021-09-19 21:20] LABS: Add Urine Microscopic? YES; Appearance Urine Cloudy (Clear); Bilirubin Urine Negative (Negative); Color Urine Yellow (Yellow); Glucose Urine UA Negative (Negative); Ketones Urine 1+ mg/dL (Negative); Leukocyte Esterase Ur 1+ LEU/UL (Negative); Mucus Urine Rare /lpf; Nitrate Urine Negative (Negative); Protein Urine Negative (Negative); RBC Urine 0-2 /hpf (0-2); Specific Grav Ur 1.018 (1.001-1.035); Squamous Epithelial Cell Urine Rare /hpf (Few); Urobilinogen Urine Negative mg/dL (<2.0)
[2021-09-19 21:21] LABS: Blood Urine Negative (Negative)
[2021-09-19] MEDS: ONDANSETRON INJ 4 MG/2 ML VIAL IV PUSH (21:26)
[2021-09-19] MEDS: SODIUM CHLORIDE 0.9% IV 1,000 ML 999 ML IV CONT (21:26)
--- NOTE | 2021-09-19 23:49 | PM.IMHP ---
H&P: HPI History of Present Illness Date/Time: 09/19/21 23:49 Chief Complaint: GI bleed Narrative: This is a 66-year-old female with past medical history significant for hypothyroidism, hypertension, chronic constipation. Patient presented to the emergency room after she had several episodes of nausea vomiting of clear yellow fluid says followed by several movements of diarrhea with blood followed by Maroon colored stools with abdominal pain localized to worse the mid and lower abdomen. Patient has been in her usual state of health up until this, she denies any fevers, any chills, any rigors ,cough, sputum production, shortness of breath, weight loss ,pain or burning with urination ,she is chronically constipated, no changes in stool character. Preliminary workup was significant for CT of abdomen and pelvis with area of colitis, CBC and BMP were pretty much unremarkable and she had a positive Guiac. Patient has been admitted for further management evaluation and treatment. Review of Systems Review of Systems: Nausea vomiting abdominal pain bloody bowel movements maroon-colored stools of 1 day duration several episodes Constitutional: Constitutional: Denies chills, Denies fatigue, Denies fever(s), Denies lethargy, Denies malaise, Denies night sweats and Denies weakness Eyes: Eyes: Denies change in vision ENT: Denies dysphagia, Denies vertigo, Denies dizziness, Denies nasal congestion, Denies nasal discharge, Denies nasal obstruction and Denies odynophagia Cardiovascular: Cardiovascular: Denies irregular heart rhythm, Denies lightheadedness, Denies radiating jaw, neck or arm pain, Denies palpitations, Denies dyspnea, Denies dyspnea on exertion and Denies orthopnea Respiratory: Respiratory: Denies cough and Denies dyspnea Gastrointestinal: Gastrointestinal: Reports abdominal pain, Denies melena, Reports hematochezia, Denies change in stool character, Denies coffee ground emesis, Reports GI cramping, Denies dyspepsia, Denies heartburn, Reports nausea, Reports vomiting and Denies hematemesis Comments: Maroon-colored stool Genitourinary: Genitourinary: Denies dysuria Musculoskeletal: Musculoskeletal: Denies back pain, Denies arthralgias, Denies joint swelling, Denies muscle cramps and Denies muscle weakness Integumentary/Breasts: Skin/Breast: Denies rash Neurologic: Denies syncope, Denies focal weakness, Denies Sensory deficit (Neuro) and Denies paresthesias Psychiatric: Psychiatric: Reports no additional psychiatric complaints and Reports as per HPI Endocrine: Endocrine: Reports no additional endocrine complaints and Reports as per HPI Hematologic/Lymphatic: Hematologic/Lymphatic: Reports no additional hematologic/lymphatic complaints and Reports as per HPI Allergic/Immunologic: Allergic/Immunologic: Reports no additional allergic/immunologic complaints and Reports as per HPI [facility] Past Medical History Medical History Actinic keratitis Aftercare following right knee joint replacement surgery Arthritis Benign microscopic hematuria Bilateral knee pain Degenerative joint disease of knee H/O seborrheic keratosis HLD (hyperlipidemia) Hypertension Hypothyroidism Left knee DJD Wears glasses Surgical History Surgical History History of abdominal hysterectomy History of surgical amputation of finger of right hand Surgery Performed by [facility]. Orthopedic group S/P total knee arthroplasty right S/P total knee replacement Family History Family History Mother Hypertension Other Arthritis Depression Social History Social History Smoking status: Never smoker Second hand tobacco smoke exposure: No Alcohol intake: never Substance use: never Substance use type: does not use Additional living arr
[2021-09-20] VITALS (14 sets, daily range): BP systolic 115–150; BP diastolic 50–71; PULSE 67–88; RESP 16–20; TEMP 36.2–36.7; O2SAT 97–100; BMI 21.5; BMI 23.2
[2021-09-20 02:08] LABS: Basophils Percent Auto 0.4 % (0.2-1.2); Eosinophils Percent Auto 0.2 % (0-4.4); Hematocrit 34.3 % (37.0-47.0); Hemoglobin 11.6 g/dL (12.0-15.0); Immature Granulocyte Absolute 0.01 K/mm3 (0.00-0.031); Immature Granulocyte Percent A 0.2 % (0-0.5); Lymphocytes Absolute Auto 0.44 K/mm3 (0.9-3.2); Mean Corpuscular HGB Conc 33.8 g/dl (32-36); Mean Corpuscular Volume 91.7 fl (80-100); Mean Platelet Volume 9.3 fl (7.4-10.4); Monocytes Absolute Auto 0.4 K/mm3 (0.1-0.6); Monocytes Percent Auto 8.6 % (2.6-8.5); Neutrophils Percent Auto 81.6 % (45.5-73.1); Platelet Count Result 207 k/mm3 (150-375); Red Blood Count 3.74 M/mm3 (4.2-5.4); Red Cell Distribution Width 13.2 % (11.5-14.5); White Blood Count 4.9 K/mm3 (4.5-10.0)
[2021-09-20 02:18] LABS: Alanine Aminotransferase 15 U/L (4-35); Albumin Level 4.3 g/dL (3.5-5.1); Alkaline Phosphatase 68 U/L (38-126); Anion Gap 10 mmol/L (8-16); Aspartate Amino Transferase 24 U/L (14-36); Bilirubin,Total 0.8 mg/dL (0.2-1.3); Blood Urea Nitrogen 21 mg/dL (7-17); Calcium 9.6 mg/dL (8.4-10.2); Carbon Dioxide 24 mmol/L (22-30); Chloride 103 mmol/L (98-107); Estimated CRCL calculation 48 ml/min; Estimated Glomerular Filt Rate > 60; Glucose 99 mg/dL (65-110); Potassium 4.2 mmol/L (3.4-5.0); Sodium 137 mmol/L (137-145)
[2021-09-20] MEDS: LEVOTHYROXINE SODIUM 50 MCG TABLET PO (06:05)
[2021-09-20] MEDS: SODIUM CHLORIDE 0.9% IV 1,000 ML 125 ML IV CONT ×2 (06:08→20:28)
[2021-09-20] MEDS: ACETAMINOPHEN 500 MG TABLET PO ×2 (06:27→20:28)
[2021-09-20 07:52] LABS: Hematocrit 34.7 % (37.0-47.0); Hemoglobin 11.7 g/dL (12.0-15.0)
--- NOTE | 2021-09-20 11:42 | PM.IMPN ---
Progress Note: A&P Assessment and Plan (1) Colitis: Code(s): K52.9 - Noninfective gastroenteritis and colitis, unspecified Status: Acute Assessment and Plan: [facility] consulted, will await recommendations Supportive care with pain meds and antiemetics, will add norco (2) GI bleed: Code(s): K92.2 - Gastrointestinal hemorrhage, unspecified Status: Acute Assessment and Plan: H/H Stable 11.7/34.7 Continue to monitor (3) Hypertension: Code(s): I10 - Essential (primary) hypertension Status: Acute Assessment and Plan: Stable Continue home med Hold for SBP <90 Monitor (4) Hypothyroidism: Code(s): E03.9 - Hypothyroidism, unspecified Status: Acute Assessment and Plan: Continue Synthroid (5) Degenerative joint disease of knee: Qualifiers: Osteoarthritis type: primary Laterality: bilateral Qualified Code(s): M17.0 - Bilateral primary osteoarthritis of knee Code(s): M17.10 - Unilateral primary osteoarthritis, unspecified knee Status: Acute Assessment and Plan: Status post knee arthroplasty (6) Rheumatoid arthritis in remission: Code(s): M06.9 - Rheumatoid arthritis, unspecified Status: Acute Assessment and Plan: On no DMARDs Follow-up in outpatient setting Subjective Date/time seen: 09/20/21 11:42 Interval history: Pt seen this a.m.; lab, vs, diagnostic reports reviewed; pt continues with abdominal pain this a.m. -04/15 Review of Systems Review of Systems: All systems reviewed & are unremarkable except as noted in HPI and below Exam Const: General: no acute distress, alert and awake Orientation/consciousness: patient oriented x3 HENMT: Head: normocephalic and atraumatic Ears: hearing grossly normal bilaterally and external ears normal Face and sinus: face symmetric Mouth: Yes Normal oral and palatal mucosa present Eyes: EOM: EOMs intact bilaterally Neck: Neck: full ROM, trachea midline and no JVD Chest: Chest palpation & inspection: normal inspection of the chest Resp: Effort & Inspection: normal respiratory effort Auscultation: clear to auscultation bilaterally Cardio: Jugular venous distension: no JVD Rate: regular rate Rhythm: regular rhythm Heart sounds: S1 normal heart sound present and S2 normal heart sound present GI: Inspection: normal to inspection GI Palp: Yes Soft to palpation and Yes Tenderness to palpation present (GI) Auscultation: normal bowel sounds : General: Yes no CVA tenderness Back/Spine/Pelvis: Back: no CVA tenderness Skin: General skin exam: normal color Rashes: no rashes Neuro: General: patient oriented x3 and CN's II-XI intact bilaterally Cranial nerves: Yes Equal, round and reactive pupils present Speech: normal speech Extrem: General: full ROM and no clubbing, cyanosis or edema Psych: Appearance: grossly normal Affect: normal affect Judgement: Good judgement present (Psych) Objective Data Vital Signs Vital Signs: Vital Signs - 24 hr 09/19/21 20:09 09/19/21 21:16 09/19/21 21:17 Temperature 36.1 C L 36.3 C L Pulse Rate 104 H 106 H 100 Respiratory Rate 18 19 17 Blood Pressure 137/77 116/58 L 116/58 L Pulse Oximetry 100 100 100 09/19/21 21:18 09/19/21 22:26 09/19/21 22:39 Temperature Pulse Rate 89 90 86 Respiratory Rate 17 20 17 Blood Pressure Pulse Oximetry 100 99 09/19/21 22:45 09/19/21 23:03 09/19/21 23:15 Temperature Pulse Rate 88 89 88 Respiratory Rate 15 12 16 Blood Pressure Pulse Oximetry 100 100 100 09/19/21 23:33 09/19/21 23:45 09/20/21 00:00 Temperature Pulse Rate 89 94 85 Respiratory Rate 14 16 20 Blood Pressure Pulse Oximetry 100 100 97 09/20/21 00:01 09/20/21 00:23 09/20/21 00:29 Temperature 36.5 C Pulse Rate 84 88 Respiratory Rate 20 17 Blood Pressure 115/50 L Pulse Oximetry 100 100 09/20/21 00:45 09/20/21 04:00 09/20/21 0
[2021-09-20] MEDS: HYDROcodone/acetaminophen (*CRX) 5-325 MG TABLET 1 TAB PO (12:38)
--- NOTE | 2021-09-20 14:20 | WPDGICN ---
Assessment and Plan Assessment and plan (1) GI bleed: Code(s): K92.2 - Gastrointestinal hemorrhage, unspecified Status: Acute (2) Colitis: Code(s): K52.9 - Noninfective gastroenteritis and colitis, unspecified Status: Acute Assessment and Plan: Patient appears to have left-sided colitis causing her to have GI bleeding. Differential diagnosis of colitis and bleeding is broad but infectious colitis appears most likely. Inflammatory bowel disease and ischemic colitis cannot be totally excluded. Plan is for broad-spectrum antibiotics. A colonoscopy will be performed in the morning after some preparation this evening. We will continue to monitor patient's hemoglobin. We will hour to have a liquid diet in anticipation of colonoscopy tomorrow. GI Consult Note Consult date/time: 09/20/21 14:20 HPI: Karley Dang is a 66 year old female I am asked to see because of blood in her stools. Patient in her usual state of health yesterday while driving about noon began to have abdominal cramps and ultimately had bloody stools. This persisted throughout the night with watery bloody mucus stools. This caused her to go to the emergency room. A CT scan revealed left-sided colitis. Patient states that since midnight she had no bloody stools until noon when she developed abdominal cramps and additional bright red blood per rectum. Mostly water was passed. Patient denies any fever. Her family history is noncontributory. She does have a past history of intermittent abdominal pain cramps in bowel movements but never bleeding before. She attributed this to irritable bowel syndrome. Patient was started on Zosyn broad-spectrum antibiotic coverage last evening. She has not required transfusion as her hemoglobin has only fallen to a small degree. She has never had a screening colonoscopy prior to this. Review of Systems Review of Systems: All systems reviewed & are unremarkable except as noted in HPI and below [facility] Past Medical History Medical History Actinic keratitis Aftercare following right knee joint replacement surgery Arthritis Benign microscopic hematuria Bilateral knee pain Degenerative joint disease of knee H/O seborrheic keratosis HLD (hyperlipidemia) Hypertension Hypothyroidism Left knee DJD Wears glasses Surgical History Surgical History History of abdominal hysterectomy History of surgical amputation of finger of right hand Surgery Performed by [facility]. Orthopedic group S/P total knee arthroplasty right S/P total knee replacement Family History Family History Mother Hypertension Other Arthritis Depression Social History Social History Smoking status: Never smoker Second hand tobacco smoke exposure: No Alcohol intake: never Substance use: never Substance use type: does not use Additional living arrangements comments: LIVES WITH 7 ADOPTIVE CHILDREN Gender identity (if verbalized by the patient): Female Spiritual care concerns: No Meds Home Medications and Allergies Home Medications Medication Instructions Recorded Confirmed Type levothyroxine 50 mcg tablet 50 mcg PO DAILY #90 tablet 11/19/20 09/20/21 Rx lisinopril 10 1 tablet PO DAILY #90 tablet 11/19/20 09/20/21 Rx mg-hydrochlorothiazide 12.5 mg tablet acetaminophen 500 mg PO Q6H PRN 09/20/21 09/20/21 History acetaminophen-caffeine [Excedrin 3 tablet PO DAILY 09/20/21 09/20/21 History Aspirin Free] Allergies Allergy/AdvReac Type Severity Reaction Status Date / Time No Known Allergies Allergy Verified 09/19/21 21:18 Vital Signs Vital Signs - 24 hr 09/19/21 20:09 09/19/21 21:16 09/19/21 21:17 Temperature 97 F L 97.3 F L Pulse Rate 104 H 106 H 10
[2021-09-20] MEDS: PEG (High)/E-LYTE SOLN 4,000 ML BTL 4000 ML PO (16:30)
[2021-09-20] MEDS: ONDANSETRON INJ 4 MG/2 ML VIAL IV PUSH (18:34)
[2021-09-21] VITALS (13 sets, daily range): BP systolic 103–145; BP diastolic 52–95; PULSE 62–80; RESP 16–23; TEMP 36.1–37.1; O2SAT 97–100
[2021-09-21] MEDS: SODIUM CHLORIDE 0.9% IV 1,000 ML 125 ML IV CONT ×2 (05:07→18:30)
[2021-09-21] MEDS: LEVOTHYROXINE SODIUM 50 MCG TABLET PO (05:43)
[2021-09-21 07:20] LABS: Anion Gap 8 mmol/L (8-16); Blood Urea Nitrogen 11 mg/dL (7-17); Calcium 8.3 mg/dL (8.4-10.2); Carbon Dioxide 24 mmol/L (22-30); Chloride 107 mmol/L (98-107); Estimated CRCL calculation 54 ml/min; Estimated Glomerular Filt Rate > 60; Glucose 85 mg/dL (65-110); Potassium 3.4 mmol/L (3.4-5.0); Sodium 139 mmol/L (137-145)
[2021-09-21] MEDS: ACETAMINOPHEN 500 MG TABLET PO ×2 (08:01→21:13)
[2021-09-21] MEDS: ONDANSETRON INJ 4 MG/2 ML VIAL IV PUSH (08:01)
[2021-09-21] MEDS: hydroCHLOROthiazide 12.5 MG CAPSULE PO (08:02)
[2021-09-21] MEDS: lisinopriL 10 MG TABLET PO (08:02)
[2021-09-21] MEDS: LACTATED RINGERS 1,000 ML 150 ML IV CONT (10:13)
--- NOTE | 2021-09-21 10:17 | SUR.PREOP ---
DR MARIE NOTIFIED PT HAD A RIGHT KNEE REPLACEMENT IN JANUARY OF 2021, PT HAS BEEN ON ZOSYN EVERY 6HRS WHILE ADMITTED TO HOSPITAL, NO NEW ORDERS FOR ADDITIONAL PREOP ANTIBIOTICS.
--- NOTE | 2021-09-21 10:27 | WPDANESEPPF ---
Anes - Initial Pre Proc Eval Procedure: Operation Date: 09/21/21 11:15 Proposed Procedures p Colonoscopy - Jermaine Dent MD Date/Time: 09/21/21 10:27 Surgeon: Job Barth MD Pre Op Diagnosis: Colitis, GI Bleed Patient Data Age: 66 Gender: F Height: 1.57 m Weight: 57.7 kg Last Vital Signs Temp 98.8 F 09/21/21 10:10 Pulse 68 09/21/21 10:10 Resp 18 09/21/21 10:10 BP 132/60 09/21/21 10:10 Pulse Ox 100 09/21/21 10:10 Allergies Allergy/AdvReac Type Severity Reaction Status Date / Time No Known Allergies Allergy Verified 09/19/21 21:18 Home Medications Medication Instructions Recorded Confirmed Type levothyroxine 50 mcg tablet 50 mcg PO DAILY #90 tablet 11/19/20 09/20/21 Rx lisinopril 10 1 tablet PO DAILY #90 tablet 11/19/20 09/20/21 Rx mg-hydrochlorothiazide 12.5 mg tablet acetaminophen 500 mg PO Q6H PRN 09/20/21 09/20/21 History acetaminophen-caffeine [Excedrin 3 tablet PO DAILY 09/20/21 09/20/21 History Aspirin Free] Laboratory Tests 09/20/21 09/21/21 13:49 06:30 Hgb 11.0 g/dL L g/dL (12.0-15.0) Hct 33.0 % L % (37.0-47.0) Sodium 139 mmol/L mmol/L (137-145) Potassium 3.4 mmol/L mmol/L (3.4-5.0) Chloride 107 mmol/L mmol/L (98-107) Carbon Dioxide 24 mmol/L mmol/L (22-30) Anion Gap 8 mmol/L mmol/L (8-16) BUN 11 mg/dL D mg/dL (7-17) Creatinine 0.70 mg/dL mg/dL (0.7-1.0) Estim Creat Clear Calc 54 ml/min ml/min Estimated GFR > 60 (59 - ) Glucose 85 mg/dL mg/dL (65-110) Calcium 8.3 mg/dL L mg/dL (8.4-10.2) Patient hx anesthesia problems: none Family hx anesthesia problems: none Results Review: All pre-operative results and documents have been reviewed as part of the pre-operative evaluation. [facility] Past Medical History Medical History Actinic keratitis Aftercare following right knee joint replacement surgery Arthritis Benign microscopic hematuria Bilateral knee pain Degenerative joint disease of knee H/O seborrheic keratosis HLD (hyperlipidemia) Hypertension Hypothyroidism Left knee DJD Wears glasses Surgical History Surgical History History of abdominal hysterectomy History of surgical amputation of finger of right hand Surgery Performed by [facility]. Orthopedic group S/P total knee arthroplasty right S/P total knee replacement Family History Family History Mother Hypertension Other Arthritis Depression Social History Social History Smoking status: Never smoker Second hand tobacco smoke exposure: No Alcohol intake: never Substance use: never Substance use type: does not use Additional living arrangements comments: LIVES WITH 7 ADOPTIVE CHILDREN Gender identity (if verbalized by the patient): Female Spiritual care concerns: No Anes - Eval Final PreProcedure Day of Procedure 09/21/21 10:27 Patient weight: normal Heart: regular rate and rhythm Lungs: clear to auscultation Airway: Mallampati scale class III Neurological: alert and oriented Last oral intake: >/= 8 hours ASA classification: III Emergent: no Anesthetic plan: proceed Anesthesia type and monitoring: general GIVS and standard monitoring Results Review: All pre-operative results and documents have been reviewed as part of the pre-operative evaluation. Informed Consent: The patient's anesthetic plan and its attendant risks and benefits were discussed with the patient/family/POA. Questions were solicited and answers provided to the satisfaction of the patient/family/POA.
--- NOTE | 2021-09-21 10:34 | PC.NURSE ---
Pt went to GI Lab at 1010 for Endoscopy
--- NOTE | 2021-09-21 10:41 | PC.NURSE ---
On 09/21/21, the student, [Preet Larose ], provided care and completed [facility] documentation on this patient. I have reviewed the student's documentation and agree with the findings.
--- NOTE | 2021-09-21 15:02 | PM.IMPN ---
Progress Note: A&P Assessment and Plan (1) Colitis: Code(s): K52.9 - Noninfective gastroenteritis and colitis, unspecified Status: Acute Assessment and Plan: CT noted above Continue Zosyn GI consulted, recommendations appreciated Supportive care with pain meds and antiemetics Colonoscopy showed colitis most consistent with infectious etiology, internal hemorrhoids Continue zosyn Full liquid diet, ADAT (2) GI bleed: Code(s): K92.2 - Gastrointestinal hemorrhage, unspecified Status: Acute Assessment and Plan: H/H Stable 11.7/34.7-->1135 today Continue to monitor (3) Hypertension: Code(s): I10 - Essential (primary) hypertension Status: Acute Assessment and Plan: Stable Continue home med Hold for SBP <90 Monitor (4) Hypothyroidism: Code(s): E03.9 - Hypothyroidism, unspecified Status: Acute Assessment and Plan: Continue Synthroid (5) Degenerative joint disease of knee: Qualifiers: Osteoarthritis type: primary Laterality: bilateral Qualified Code(s): M17.0 - Bilateral primary osteoarthritis of knee Code(s): M17.10 - Unilateral primary osteoarthritis, unspecified knee Status: Acute Assessment and Plan: Status post knee arthroplasty (6) Rheumatoid arthritis in remission: Code(s): M06.9 - Rheumatoid arthritis, unspecified Status: Acute Assessment and Plan: On no DMARDs Follow-up in outpatient setting Subjective Date/time seen: 09/21/21 15:02 Interval history: 09/20 Pt seen this a.m.; lab, vs, diagnostic reports reviewed; pt continues with abdominal pain this a.m. -04/15 09/21 Pt seen and evaluated; pain is controlled; s/p colonoscopy; denies N/V; pain controlled Review of Systems Review of Systems: All systems reviewed & are unremarkable except as noted in HPI and below Exam Const: General: no acute distress, alert and awake Orientation/consciousness: patient oriented x3 HENMT: Head: normocephalic and atraumatic Ears: hearing grossly normal bilaterally and external ears normal Face and sinus: face symmetric Mouth: Yes Normal oral and palatal mucosa present Eyes: Pupils: Equal, round and reactive pupils present EOM: EOMs intact bilaterally Neck: Neck: full ROM, trachea midline and no JVD Chest: Chest palpation & inspection: normal inspection of the chest Resp: Effort & Inspection: normal respiratory effort Auscultation: clear to auscultation bilaterally Cardio: Jugular venous distension: no JVD Rate: regular rate Rhythm: regular rhythm Heart sounds: S1 normal heart sound present and S2 normal heart sound present GI: Inspection: normal to inspection Auscultation: normal bowel sounds : General: Yes no CVA tenderness Back/Spine/Pelvis: Back: no CVA tenderness Skin: General skin exam: normal color Rashes: no rashes Neuro: General: patient oriented x3 and CN's II-XI intact bilaterally Cranial nerves: Yes Equal, round and reactive pupils present Speech: normal speech Extrem: General: full ROM and no clubbing, cyanosis or edema Psych: Appearance: grossly normal Affect: normal affect Judgement: Good judgement present (Psych) Objective Data Vital Signs Vital Signs: Vital Signs - 24 hr 09/20/21 15:27 09/20/21 16:00 09/20/21 20:00 Temperature 36.7 C Pulse Rate 78 69 71 Respiratory Rate 18 Blood Pressure 126/58 L Pulse Oximetry 98 09/20/21 21:28 09/20/21 23:42 09/21/21 00:00 Temperature 36.4 C Pulse Rate 67 65 Respiratory Rate 16 Blood Pressure 150/71 H Pulse Oximetry 98 97 09/21/21 04:00 09/21/21 06:00 09/21/21 07:50 Temperature 36.1 C L Pulse Rate 62 76 Respiratory Rate 16 Blood Pressure 145/63 H Pulse Oximetry 99 100 09/21/21 08:00 09/21/21 09:30 09/21/21 10:10 Temperature 36.2 C L 36.6 C 37.1 C Pulse Rate 73 80 68 Respiratory Rate 18 16 18 Blood Pressure 126/68 110/95 H 132/60 Pulse Oximetry 100 9
[2021-09-22] MEDS: SODIUM CHLORIDE 0.9% IV 1,000 ML 125 ML IV CONT (05:06)
[2021-09-22] MEDS: LEVOTHYROXINE SODIUM 50 MCG TABLET PO (05:07)
[2021-09-22 06:00] VITALS: BP 124/60; PULSE 59; RESP 16; TEMP 36.2; O2SAT 98
[2021-09-22 06:43] LABS: Anion Gap 9 mmol/L (8-16); Blood Urea Nitrogen 6 mg/dL (7-17); Carbon Dioxide 26 mmol/L (22-30); Chloride 105 mmol/L (98-107); Estimated CRCL calculation 62 ml/min; Estimated Glomerular Filt Rate > 60; Glucose 100 mg/dL (65-110); Potassium 3.2 mmol/L (3.4-5.0); Sodium 140 mmol/L (137-145)
--- NOTE | 2021-09-22 07:20 | WPDGIPROGNO ---
Progress Note: A&P Assessment and Plan (1) Colitis: Code(s): K52.9 - Noninfective gastroenteritis and colitis, unspecified Status: Acute Assessment and Plan: Patient with localized mild left-sided colitis by endoscopy. Most consistent with infectious etiology. Patient improving clinically. Plan for discharge on a regular diet. Would complete 1 week course of antibiotics either Cipro or Flagyl after discharge. She should follow up with primary care service. Although if diarrhea or pain persists we can see her electively in the office (2) GI bleed: Code(s): K92.2 - Gastrointestinal hemorrhage, unspecified Status: Acute Assessment and Plan: GI bleeding resolved. Appears to have been from the colitis. Subjective Date/time seen: 09/22/21 07:2 patient feeling much better this morning. Tolerating diet. States abdominal pain has gone. Diarrhea has lessened a great deal. Review of Systems Review of Systems: All systems reviewed & are unremarkable except as noted in HPI and below Exam Narrative: Physical exam patient is alert comfortable at rest. HEENT exam is unremarkable. Patient is anicteric. Lungs are clear. Heart without murmur. Abdomen bowel sounds present soft nontender with no organomegaly. Objective Data Vital Signs Vital Signs: Vital Signs - 24 hr 09/21/21 07:50 09/21/21 08:00 09/21/21 09:30 Temperature 97.2 F L 97.9 F Pulse Rate 73 80 Respiratory Rate 18 16 Blood Pressure 126/68 110/95 H Pulse Oximetry 100 100 97 09/21/21 10:10 09/21/21 11:25 09/21/21 11:35 Temperature 98.8 F Pulse Rate 68 79 66 Respiratory Rate 18 23 H 19 Blood Pressure 132/60 103/52 L 110/55 L Pulse Oximetry 100 99 99 09/21/21 11:45 09/21/21 14:00 09/21/21 20:00 Temperature 97.0 F L Pulse Rate 66 72 Respiratory Rate 23 H 16 Blood Pressure 112/69 112/57 L Pulse Oximetry 100 100 100 09/21/21 21:33 09/22/21 06:00 Temperature 97.5 F L 97.2 F L Pulse Rate 73 59 L Respiratory Rate 18 16 Blood Pressure 123/54 L 124/60 Pulse Oximetry 97 98 Intake/Output Intake/Output: Intake & Output 11/1409/20/21 09/21/21 09/22/21 23:59 23:59 23:59 23:59 Intake Total 1100 1810 3980 1300 Output Total 600 3000 Balance 1100 9484 769 2828 Meds/Results Medications: Active Medications Generic Name Dose Route Start Last Admin Trade Name Freq PRN Reason Stop Dose Admin Acetaminophen 500 mg 09/20/21 05:15 09/21/21 08:01 Acetaminophen 500 Mg Tablet PO 500 mg Q6H PRN Administration Pain Rated 1-3 Acetaminophen 500 mg 09/20/21 21:00 09/21/21 21:13 Acetaminophen 500 Mg Tablet PO 500 mg HS BERT Administration Hydrocodone Bitart/Acetaminophen 1 tab 09/20/21 12:23 09/20/21 12:38 Hydrocodone/Acetaminophen (*Crx) 5-325 Mg Tablet PO 1 tab Q6H PRN Administration Pain Rated 6-10 Hydrochlorothiazide 12.5 mg 09/20/21 09:00 09/21/21 08:02 Hydrochlorothiazide 12.5 Mg Capsule PO 12.5 mg QAM BERT Administration Sodium Chloride 1,000 mls @ 125 mls/hr 09/19/21 23:50 09/22/21 05:07 Normal Saline Iv IV CONT Not Given .Q8H BERT Piperacillin/Tazobactam/Dextrose 3.375 gm in 50 mls @ 100 mls/hr 09/20/21 07:45 09/22/21 05:35 Zosyn 3.375 Gm/D5w 50ml Pm IVPB Infused Q6HR BERT Infusion Levothyroxine Sodium 50 mcg 09/20/21 06:30 09/22/21 05:07 Levothyroxine Sodium 50 Mcg Tablet PO 50 mcg DAILY@0630 BERT Administration Lisinopril 10 mg 09/20/21 09:00 09/21/21 08:02 Lisinopril 10 Mg Tablet PO 10 mg QAM BERT Administration Ondansetron HCl 4 mg 09/19/21 23:49 09/21/21 08:01 Ondansetron Inj 4 Mg/2 Ml Vial IV PUSH 4 mg Q4H PRN Administration Nausea Radiology Results: ITS Impressions Abdomen/Pelvis CT 09/20/21 08:48 IMPRESSION: 1. Left hemicolonic colitis. 2. Probable mild pelvic prolapse. 3. Left renal perihilar varices. Labs Labs: Laboratory Results - last 2
[2021-09-22 08:00] VITALS: O2SAT 100
[2021-09-22 08:12] LABS: Basophils Percent Auto 0.7 % (0.2-1.2); Eosinophils Absolute Auto 0.1 K/mm3 (0-0.3); Eosinophils Percent Auto 3.9 % (0-4.4); Hematocrit 30.3 % (37.0-47.0); Lymphocytes Absolute Auto 0.58 K/mm3 (0.9-3.2); Lymphocytes Percent Auto 20.4 % (18.3-44.2); Mean Corpuscular Hemoglobin 30.7 pg (26-34); Mean Corpuscular Volume 92.9 fl (80-100); Mean Platelet Volume 9.8 fl (7.4-10.4); Monocytes Absolute Auto 0.4 K/mm3 (0.1-0.6); Monocytes Percent Auto 14.7 % (2.6-8.5); Neutrophils Absolute Auto 1.7 K/mm3 (1.3-6.7); Neutrophils Percent Auto 60.3 % (45.5-73.1); Platelet Count Result 154 k/mm3 (150-375); Red Blood Count 3.26 M/mm3 (4.2-5.4); Red Cell Distribution Width 13.4 % (11.5-14.5); White Blood Count 2.9 K/mm3 (4.5-10.0)
[2021-09-22] MEDS: POTASSIUM CHLORIDE 20 MEQ TABLET 40 MEQ PO (08:29)
[2021-09-22] MEDS: hydroCHLOROthiazide 12.5 MG CAPSULE PO (08:30)
[2021-09-22] MEDS: lisinopriL 10 MG TABLET PO (08:30)
--- NOTE | 2021-09-22 09:30 | PM.DS ---
DS: Admitting Diagnosis Discharge Date Date of service 09/22/2021 at 9:30 a.m. Admitting Diagnosis Infectious colitis GI bleed DS: Discharge Diagnosis Discharge Diagnosis (1) Colitis: Code(s): K52.9 - Noninfective gastroenteritis and colitis, unspecified Status: Acute Assessment and Plan: CT noted above Continue Zosyn GI consulted, recommendations appreciated Supportive care with pain meds and antiemetics Colonoscopy showed colitis most consistent with infectious etiology, internal hemorrhoids Continue zosyn Full liquid diet, ADAT Change Zosyn to Cipro x1 week (2) GI bleed: Code(s): K92.2 - Gastrointestinal hemorrhage, unspecified Status: Acute Assessment and Plan: H/H Stable 11.7/34.7-->35 today Continue to monitor (3) Hypertension: Code(s): I10 - Essential (primary) hypertension Status: Acute Assessment and Plan: Stable Continue home med Hold for SBP <90 Monitor (4) Hypothyroidism: Code(s): E03.9 - Hypothyroidism, unspecified Status: Acute Assessment and Plan: Continue Synthroid (5) Degenerative joint disease of knee: Qualifiers: Laterality: bilateral Osteoarthritis type: primary Qualified Code(s): M17.0 - Bilateral primary osteoarthritis of knee Code(s): M17.10 - Unilateral primary osteoarthritis, unspecified knee Status: Acute Assessment and Plan: Status post knee arthroplasty (6) Rheumatoid arthritis in remission: Code(s): M06.9 - Rheumatoid arthritis, unspecified Status: Acute Assessment and Plan: On no DMARDs Follow-up in outpatient setting DS: Summary Hospital Course Hospital Course: Patient is a 66-year-old female with past medical history of hypothyroidism, hypertension, constipation who presented the emergency room after several episodes of nausea vomiting followed up with diarrhea and room colored stools. Patient has CT of the abdomen which showed colitis. GI was consulted took the patient for a colonoscopy which showed infective colitis. Patient was started on Zosyn. Patient was also noted to have decrease in H&H, which there was notable multiple small size internal hemorrhoids however no bleeding was noted on the colonoscopy. Patient was slowly advanced with diet and is currently on a regular diet and tolerating very well patient is ready to go home. Patient denies chest pain, shortness of breath, weakness, fatigue, abdominal pain, nausea, vomiting, diarrhea, constipation, sweats, fevers, chills. Patient does admit to having bowel movements that her okay in nature. Currently H&H is 10/30.3 kidney function is normal at 6/0.60. Potassium was low this morning at 3.2 and was replaced with 40 mg p.o. WBCs is low at 2.9 however seems the patient typically has a lower white blood cell count. ANC 7200 which is normal. Status at Discharge Functional status at discharge: independent ambulation Overall status at discharge: patient is progressing back to baseline Time Spent with Patient Time attestation: Total time spent providing and/or coordinating discharge services: 48 minutes Time spent: Greater than 30 minutes Exam Const: General: cooperative, healthy appearing, comfortable, no acute distress, well developed, alert and awake Nutritional Appearance: thin Orientation/consciousness: oriented to person, oriented to place, oriented to time and patient oriented x3 HENMT: Head: normal to inspection, normocephalic and atraumatic Ears: hearing grossly normal bilaterally and external ears normal General nose exam: Normal external nose present Face and sinus: normal facial exam and face symmetric Mouth: Yes Normal oral and palatal mucosa present Eyes: General: appearance normal, both eyes and all related structures Alignment and Position: alignment normal Sclera: sclerae normal Pupils: Equal, round and reactive pupils present EOM: EOMs intact bilaterally Neck: Neck: n
--- NOTE | 2021-09-22 09:54 | WPDANESPN ---
Anes - Prog Note Post-Op Date/Time: 09/22/21 09:54 Cardiovascular status: normal Respiratory status: normal Airway patency: baseline Mental status: baseline Post-Op hydration status: normal Vital Signs: Last Vital Signs Temp 97.2 F L 09/22/21 06:00 Pulse 59 L 09/22/21 06:00 Resp 16 09/22/21 06:00 BP 124/60 09/22/21 06:00 Pulse Ox 98 09/22/21 06:00 Pain Score (VAS): 11/15 I/O: Intake & Output 09/21/21 09/22/21 09/22/21 23:59 07:59 15:59 Intake Total 540 1300 700 Output Total 1800 Balance -1260 1300 700 Laboratory Tests 09/22/21 05:44 09/22/21 05:46 09/22/21 09/22/21 05:44 05:46 WBC 2.9 L RBC 3.26 L Hgb 10.0 L Hct 30.3 L MCV 92.9 MCH 30.7 MCHC 33.0 RDW 13.4 Plt Count 154 MPV 9.8 Immature Gran % (Auto) 0.0 Neut % (Auto) 60.3 Lymph % (Auto) 20.4 [place] % (Auto) 14.7 H Eos % (Auto) 3.9 Baso % (Auto) 0.7 Lymph # (Auto) 0.58 L [place] # (Auto) 0.4 Eos # (Auto) 0.1 Baso # (Auto) 0.0 Abs Immat Gran (auto) 0.00 Absolute Neuts (auto) 1.7 Absolute Nucleated RBC 0.0 Nucleated RBC % 0.0 Sodium 140 Potassium 3.2 L Chloride 105 Carbon Dioxide 26 Anion Gap 9 BUN 6 L D Creatinine 0.60 L Estim Creat Clear Calc 62 Estimated GFR > 60 Glucose 100 Calcium 8.0 L Microbiology 09/19/21 21:10 Urine Clean Catch Urine Culture - Final Post-procedural complaints: none Patient Feedback: Patient satisfied with anesthetic care.
== END 2021-09-22 14:10 | disposition home or self-care (01) ==
LOC: ANHED 23:51 → ANH3MEDSUR 09-20 14:28
PROVIDERS: Internal Medicine Gastroenterology; Nurse Practitioner; Nurse Practitioner Adult Health; Admitting Provider Internal Medicine; Emergency Provider Emergency Medicine; PCP Family Medicine; Visit Provider Internal Medicine
PROC: 0DJD8ZZ Inspection of Lower Intestinal Tract, Via Natural or Artificial Opening Endoscopic (ICD-10-PCS; CPT 45378; principal; 2021-09-21 11:15)
DX: K52.9 Noninfective gastroenteritis and colitis, unspecified (principal); K64.8 Other hemorrhoids; K59.09 Other constipation; E03.9 Hypothyroidism, unspecified; I10 Essential (primary) hypertension; M06.9 Rheumatoid arthritis, unspecified; Z79.899 Other long term (current) drug therapy; Z96.651 Presence of right artificial knee joint
CPT/HCPCS: 45380; 36415; 74177; 80048; 80053; 81001; 83605; 83690; 85014; 85018; 85025; 85610; 85730; 86850; 86900; 86901; 87086; 87088; 88305; 96361; 96365; 96366; 96375; 96376; 99285; A9270; G0378; J0131; J2405; J2543; J2704; J7030; J7120; Q9967

== ENCOUNTER 2022-06-27 08:03 | Outpatient (CLI) | payer MEDICARE, SELFPAY ==
--- NOTE | 2022-06-27 09:06 | ECG_ITS ---
Measurements Intervals [place] Rate: 73 P: 25 CO: 194 QRS: -20 QRSD: 94 T: 41 QT: 402 QTc: 443 Interpretive Statements SINUS RHYTHM BASELINE ARTIFACT SEPTAL MYOCARDIAL INFARCTION ABNORMAL ECG COMPARED TO ECG 01/05/2021 13:03:38 NO SIGNIFICANT CHANGES Electronically Signed On 06-27-2022 16:25:07 CDT by Lenny Beltran M.D.
[2022-06-27 09:29] LABS: Basophils Absolute Auto 0.1 K/mm3 (0.0-0.1); Basophils Percent Auto 0.9 % (0.2-1.2); Eosinophils Absolute Auto 0.1 K/mm3 (0-0.3); Eosinophils Percent Auto 1.7 % (0-4.4); Hematocrit 37.6 % (37.0-47.0); Hemoglobin 12.1 g/dL (12.0-15.0); Immature Granulocyte Absolute 0.02 K/mm3 (0.00-0.031); Immature Granulocyte Percent A 0.3 % (0-0.5); Lymphocytes Absolute Auto 0.52 K/mm3 (0.9-3.2); Lymphocytes Percent Auto 8.8 % (18.3-44.2); Mean Corpuscular HGB Conc 32.2 g/dl (32-36); Mean Corpuscular Hemoglobin 30.7 pg (26-34); Mean Corpuscular Volume 95.4 fl (80-100); Mean Platelet Volume 9.6 fl (7.4-10.4); Monocytes Absolute Auto 0.4 K/mm3 (0.1-0.6); Monocytes Percent Auto 7.1 % (2.6-8.5); Neutrophils Absolute Auto 4.8 K/mm3 (1.3-6.7); Neutrophils Percent Auto 81.2 % (45.5-73.1); Platelet Count Result 216 k/mm3 (150-375); Red Blood Count 3.94 M/mm3 (4.2-5.4); Red Cell Distribution Width 13.1 % (11.5-14.5); White Blood Count 5.9 K/mm3 (4.5-10.0)
[2022-06-27 09:43] LABS: Prothrombin Time 12.3 Seconds (11.1-14.7)
[2022-06-27 09:44] LABS: Partial Thromboplastin Time 26.9 SECONDS (22.3-36.8)
[2022-06-27 09:47] LABS: Albumin Level 4.8 g/dL (3.5-5.1); Anion Gap 10 mmol/L (8-16); Blood Urea Nitrogen 28 mg/dL (7-17); Calcium 9.3 mg/dL (8.4-10.2); Carbon Dioxide 29 mmol/L (22-30); Chloride 100 mmol/L (98-107); Estimated Glomerular Filt Rate > 60; Glucose 107 mg/dL (65-110); Potassium 4.9 mmol/L (3.4-5.0); Sodium 139 mmol/L (137-145)
[2022-06-27 10:03] LABS: Hemoglobin A1C 5.6 % (<5.7)
[2022-06-27 10:08] LABS: Appearance Urine Clear (Clear); Bilirubin Urine Negative (Negative); Blood Urine Trace-lysed (Negative); Color Urine Yellow (Yellow); Glucose Urine UA Negative (Negative); Ketones Urine Negative (Negative); Leukocyte Esterase Ur 1+ LEU/UL (Negative); Nitrate Urine Negative (Negative); Protein Urine Negative (Negative); Specific Grav Ur 1.025 (1.001-1.035); Urine Cotinine NEGATIVE; Urobilinogen Urine 0.2 mg/dL (<2.0); pH Urine 5.5 (5.0-9.0)
[2022-06-27 10:13] LABS: Bacteria Urine Trace /hpf; Mucus Urine Rare /lpf; Squamous Epithelial Cell Urine Rare /hpf (Few)
[2022-06-27 10:24] LABS: Add Urine Microscopic? YES
== END 2022-06-27 08:04 | disposition home or self-care (01) ==
PROVIDERS: PCP Family Medicine; Visit Provider Orthopaedic Surgery
DX: M17.12 Unilateral primary osteoarthritis, left knee (principal); Z01.818 Encounter for other preprocedural examination; R94.31 Abnormal electrocardiogram [ECG] [EKG]
CPT/HCPCS: 80048; 80307; 81001; 82040; 83036; 85025; 85610; 85730; 87081; 87086; 87088; 87147; 93005

== ENCOUNTER 2022-07-12 01:22 | Day surgery (SDC) | payer MEDICARE, SELFPAY ==
[2022-06-27 08:14] VITALS: BMI 23.4
--- NOTE | 2022-06-27 08:39 | PC.NURSE ---
Report to the Outpatient Waiting Room, entrance under the green pavilion located off [facility], at time 0600 on date ___07/12/22____. OR Time: 729 . - You and your visitor will be asked to self-screen and do not enter if you have any COVID symptoms. - Only one visitor and NO children visitors are allowed at this time. - The patient visitor is requested to leave or wait in car when not with patient due to restrictions. - A mask is required within the hospital. Patients may have clear liquids (water, carbonated beverages, clear teas, apple juice) until 3 hours prior to surgery with a maximum of 20 ounces. - No food from midnight until time of surgery - Infants may have breast milk until 4 hours before surgery, infant formula 6 hours prior to surgery. - Children will be allowed to drink immediately following surgery. If applicable, please bring a bottle or sippy cup to assist with drinking. Juice, water, soda, and popsicles are readily available. For infants on formula, please bring formula the day of surgery. Pacifiers are allowed. Take the following medications with a SIP of water the morning of surgery: ____LEVOTHYROXINE Medications to discontinue per physician __NONE Date to take last dose Please no make-up, nail ukrainian, hairspray, perfume, deodorant, or body powder the day of surgery. No jewelry (including any body piercings) or valuables the day of surgery, leave them at home. Please take a shower or bath the night before, or the morning of, surgery with an antibacterial soap. Wear comfortable, loose fitting clothing. Children are encouraged to wear pajamas. - Jewelry must be removed prior to entering the operating room. Rings and piercings that are not removed may be cut off. - The hospital will not accept responsibility for valuables. - Please leave all valuables, including medications, at home the day of surgery. If you are going home after surgery, a licensed bulk delivery driver must drive you home. - NO public transportation without another adult. - We recommend that an adult stay with you for 24 hours following discharge. - We also recommend that you do not drive, make important decision, drink alcoholic beverages, or take any drugs that were not prescribed by your health care provider for at least 24 hours after your discharge time. For Pediatric surgeries, we recommend two adults accompany the child home (only one inside the building at this time). Follow any additional instructions given to you from your surgeon. If you or anyone in your household have experienced Covid symptoms in the past week, please notify your surgeon or the nurse liaison at the phone number below for possible testing. VERBAL AND WRITTEN instructions given to __PATIENT and asked if any additional questions and then verbalized understanding. Patient advised to call surgeon office or pre surgery nurse liaison [phone] if any additional questions.
[2022-06-27 08:55] VITALS: BP 125/62; PULSE 76; RESP 18; TEMP 37.3; O2SAT 97
[2022-07-12] VITALS (11 sets, daily range): BP systolic 108–122; BP diastolic 48–75; PULSE 67–86; RESP 10–20; TEMP 36.1–36.8; O2SAT 97–100
--- NOTE | ~2022-07-12 | XR_ITS ---
EXAMINATION: XR knee LT 2V DATE: 07/12/2022 10:38 INDICATION: Postoperative evaluation following left total knee arthroplasty. TECHNIQUE: Anteroposterior and lateral views of the left knee were obtained. COMPARISON: 03/18/2022 FINDINGS: Left total knee arthroplasty without patellar resurfacing appears well seated and in near anatomic al ignment. No fractures identified. Skin renee and expected postoperative subcutaneous, intramedull robert and intra-articular gas. IMPRESSION: 1. Left total knee arthroplasty, negative for postoperative purposes. Reviewed, dictated and finalized at location A.
[2022-07-12] MEDS: ACETAMINOPHEN 500 MG TABLET 1000 MG PO (06:30)
[2022-07-12] MEDS: ONDANSETRON INJ 4 MG/2 ML VIAL IV PUSH ×2 (06:56→11:48)
[2022-07-12] MEDS: TRANEXAMIC ACID 1,000MG/ISO100 1,000 MG/100 ML BAG 200 MG IVPB (06:57)
--- NOTE | 2022-07-12 07:08 | WPDANESEPPF ---
Anes - Initial Pre Proc Eval Procedure: Operation Date: 07/12/22 07:30 Proposed Procedures p Left Total Knee Arthroplasty - Fawad Tracey MD Date/Time: 07/12/22 07:08 Surgeon: Fawad Tracey MD Pre Op Diagnosis: left knee djd Patient Data Age: 67 Gender: F Height: 1.57 m Weight: 57.9 kg Last Vital Signs Temp 37.3 C 06/27/22 08:55 Pulse 76 06/27/22 08:55 Resp 18 06/27/22 08:55 BP 125/62 06/27/22 08:55 Pulse Ox 97 06/27/22 08:55 O2 Del Method Room Air 06/27/22 08:55 Allergies Allergy/AdvReac Type Severity Reaction Status Date / Time No Known Allergies Allergy Verified 07/12/22 06:29 Home Medications Medication Instructions Recorded Confirmed Type acetaminophen 500 mg tablet 500 mg PO Q6H PRN Pain 09/20/21 07/12/22 History acetaminophen-caffeine 500 mg-65 3 tablet PO DAILY 09/20/21 07/12/22 History mg tablet chlorhexidine gluconate 4 % 1 applic topical ONCE #237 mL 07/04/22 Rx topical liquid (Hibiclens) levothyroxine 50 mcg tablet 50 mcg PO DAILY #90 tabs 07/04/22 07/12/22 Rx lisinopril 10 1 tablet PO DAILY #90 tabs 07/04/22 07/12/22 Rx mg-hydrochlorothiazide 12.5 mg tablet Patient hx anesthesia problems: post op nausea/vomiting Family hx anesthesia problems: post op nausea/vomiting Results Review: All pre-operative results and documents have been reviewed as part of the pre-operative evaluation. [facility] Past Medical History Medical History Actinic keratitis Aftercare following right knee joint replacement surgery Arthritis Benign microscopic hematuria Bilateral knee pain Degenerative joint disease of knee H/O seborrheic keratosis HLD (hyperlipidemia) Hypertension Hypothyroidism Left knee DJD Wears glasses Surgical History Surgical History History of abdominal hysterectomy History of surgical amputation of finger of right hand Surgery Performed by [facility]. Orthopedic group S/P total knee arthroplasty right S/P total knee replacement Family History Family History Mother Hypertension Other Arthritis Depression Social History Social History Smoking status: Never smoker Second hand tobacco smoke exposure: No Additional smoking assessment comments: DENIES ANY FORM OF TOBACCO USE Alcohol intake: never Substance use: never Substance use type: does not use Living arrangements: with family Additional living arrangements comments: LIVES WITH 7 ADOPTIVE CHILDREN Gender identity (if verbalized by the patient): Female Spiritual care concerns: No Anes - Eval Final PreProcedure Day of Procedure 07/12/22 07:08 Patient weight: normal Heart: regular rate and rhythm Lungs: clear to auscultation Airway: Mallampati scale class III Neurological: alert and oriented Last oral intake: >/= 8 hours ASA classification: III Emergent: no Anesthetic plan: proceed Anesthesia type and monitoring: general LMA and standard monitoring Results Review: All pre-operative results and documents have been reviewed as part of the pre-operative evaluation. Informed Consent: The patient's anesthetic plan and its attendant risks and benefits were discussed with the patient/family/POA. Questions were solicited and answers provided to the satisfaction of the patient/family/POA.
--- NOTE | 2022-07-12 07:13 | WPDHPUPDATE1 ---
History and Physical Update Update Date/Time: 07/12/22 07:13 History and Physical has been reviewed, including an updated exam of the patient. There are NO changes in the patient's condition. Risks, benefits, and alternatives have been discussed and questions answered. Patient agrees to proceed with procedure.
[2022-07-12] MEDS: SCOPOLAMINE 1.5 MG PATCH TRANSDERM (07:14)
[2022-07-12] MEDS: LACTATED RINGERS 1,000 ML 30 ML IV CONT ×2 (07:14→10:14)
[2022-07-12] MEDS: ceFAZolin 2 GM/D5W 50 ML 2 GM/50 ML BAG IVPB ×3 (07:43→23:37)
--- NOTE | 2022-07-12 07:52 | WPDANESPNB ---
Anes - Peripheral Nerve Block Date/Time: 07/12/22 07:52 I have discussed with the patient/family/POA the placement of a peripheral nerve block for post-operative pain management, including associated risks, benefits, complications, and side effects. Alternative methods of post-operative analgesia were detailed. Questions were solicited and answers provided to the satisfaction of the patient/family/POA. Time-Out: A pre-procedural Time-Out was completed immediately before starting the procedure and confirmed: Patient Identification, Site, Procedure, Patient Position and the Availability of Requisite Equipment. Clinical Indications: Acute post-operative pain management requested by the operative surgeon. Nerve Block Insertion Note Anes-nerve block: adductor canal left Patient position: supine Skin prep: chlorhexidine Needle: 22 gauge, stimulating, insulated echogenic needle. Needle length: 80 mm Technique: ultrasound Technique comment: mid2mg [id number] Injectate: bupivacaine 0.5% with epi 5 mcg/ml (30ml no epi) and dexamethasone (mg) (4) Observations: tolerated well Complications: none Procedure start time:: 730 Procedure end time:: 737
[2022-07-12] MEDS: GENTAMICIN BONE CEMENT REFOBACIN 1 EACH TOPICAL (08:27)
[2022-07-12] MEDS: TRANEXAMIC ACID 1,000 MG/10 ML AMPUL 1000 MG IV PUSH (09:08)
--- NOTE | 2022-07-12 10:47 | W.PM.PROC2 ---
Procedure Note - Detailed Date of Procedure 07/12/22 Pre-op Diagnosis left knee djd Post-op Diagnosis Same Procedure Performed LEFT TKA Surgeon Fawad Tracey MD Anesthesia General Indications LEFTKNEE DJD Description of Procedure THE LEFT KNEE WAS PREPPED AND DRAPED IN THE STERILE FASHION.? A MIDLINE SKIN INCISION WAS MADE.? A MEDIAL PARAPATELLAR ARTHROTOMY WAS MADE.? THE PATELLA WAS EVERTED.? THERE WAS TRICOMPARTMENT DJD. THERE WAS MINIMAL PATELLA DJD.? AN INTRAMEDULLARY RACHEL WAS PLACED IN THE FEMUR.? A DISTAL FEMORAL CUT WAS MADE IN 5 DEGREES OF VALGUS REMOVING APPROXIMATELY 9 MM OF BONE FROM THE DISTAL FEMUR. THE FEMUR WAS SIZED TO 60.? A 60 FEMORAL CUTTING BLOCK WAS PLACED IN 3 DEGREES OF EXTERNAL ROTATION AND IN ALIGNMENT WITH PRIMITIVO'S LINE AND THE TRANSEPICONDYLAR AXIS. ANTERIOR POSTERIOR AND CHAMFER CUTS WERE MADE.? THE CUTS WERE EXCELLENT.? NEXT AN INTRAMEDULLARY CUTTING GUIDE WAS PLACED IN THE TIBIA.? A TRANS TIBIAL CUT WAS MADE ALONG THE LONG AXIS OF THE TIBIA.? APPROXIMATELY 10 MM OF BONE WAS REMOVED FROM THE HIGH SIDE OF THE TIBIA. THE TIBIA WAS THEN PLANED TO A SMOOTH SURFACE.? POSTERIOR FEMORAL OSTEOPHYTES WERE REMOVED FROM THE FEMORAL CONDYLES.? A 71 TIBIAL TRIAL WAS PLACED IN ALIGNMENT WITH THE 1/3 MEDIAL ASPECT OF THE TIBIAL TUBERCLE.? THEN A 60 FEMORAL TRIAL COMPONENT WAS PLACED.? BOTH HAD EXCELLENT FIT.? EVENTUALLY A 12 MM POLYETHYLENE TRIAL? COMPONENT WAS PLACED.? THE KNEE WAS TAKEN THROUGH A RANGE OF MOTION.? THE KNEE CAME OUT TO FULL EXTENSION.? THERE WAS NO ABNORMAL TILT TO THE PATELLA.? THERE WAS GOOD A/P AND VARUS/VALGUS STABILITY.? THERE WAS NO EXCESSIVE ROLL BACK WITH FLEXION.? THE TRIAL COMPONENTS WERE REMOVED. THEN A 60 FEMORAL COMPONENT AND 71 TIBIAL COMPONENT WITH A 12 CR POLYETHYLENE COMPONENT WERE CEMENTED INTO PLACE. THE IMPLANTS WERE FLUSH WITH THE CUT BONE SURFACES. THE KNEE WAS TAKEN THROUGH A ROM AGAIN AND FOUND TO BE STABLE WITH NO PATELLA TILT NO EXCESSIVE ROLL BACK WITH FLEXION AND GOOD STABILITY WITH COMPLETE AND FULL EXTENSION.? THE KNEE WAS IRRIGATED WITH STERILE BETADINE AND WATER FOR ABOUT 3 MINUTES.? THE BLEEDERS WERE CAUTERIZED.? THE ARTHROTOMY WAS REPAIRED WITH NUMBER 1 VICRYL.? THE SUB CUTANEOUS LAYER WITH 2-0 VICRYL AND THE SKIN WITH MERISSA.? THE WOUND WAS WASHED AND A STERILE DRESSING WAS APPLIED.? PATIENT WAS EXTUBATED. Estimated Blood Loss -50.0 Complications No immediate complications Condition Stable Disposition PACU
[2022-07-12] MEDS: fentaNYL CITRATE INJ (*CRX) 100 MCG/2 ML VIAL 25 MCG IV PUSH (11:00)
--- NOTE | 2022-07-12 11:54 | ADMGEN ---
This patient, Karley Dang, was admitted to Medical Room 253-01. Patient/family oriented to hospital policies and general routines including ID bracelet, bed and alarms, visiting hours, pain management, procedures, bathroom and other care routines, personal items, smoking policy, room service/diet, and visiting hours. Information on how to activate the Rapid Response Team has been discussed. Patient/Family are encouraged to report perceived risks to care and to ask questions if they do not understand what they are told or what they should do.
[2022-07-12] MEDS: KETOROLAC 15 MG/ML VIAL (*BKC) IV PUSH ×3 (12:14→23:35)
[2022-07-12] MEDS: SODIUM CHLORIDE 0.9% IV 1,000 ML 125 ML IV CONT (12:15)
[2022-07-12] MEDS: ACETAMINOPHEN 500 MG TABLET PO ×2 (15:19→21:00)
[2022-07-12] MEDS: SENNA/DOCUSATE SODIUM TABLET 2 TAB PO (17:09)
[2022-07-13 00:16] VITALS: BP 110/54; PULSE 84; RESP 20; TEMP 36.3; O2SAT 97
[2022-07-13 03:45] VITALS: BP 108/46; PULSE 84; RESP 20; TEMP 36.3; O2SAT 84
[2022-07-13 03:46] VITALS: BP 108/46; PULSE 84; RESP 20; TEMP 36.1; O2SAT 98
[2022-07-13 05:10] LABS: Basophils Percent Auto 0.4 % (0.2-1.2); Eosinophils Percent Auto 0.1 % (0-4.4); Hematocrit 30.3 % (37.0-47.0); Hemoglobin 10.1 g/dL (12.0-15.0); Immature Granulocyte Absolute 0.04 K/mm3 (0.00-0.031); Immature Granulocyte Percent A 0.5 % (0-0.5); Lymphocytes Absolute Auto 0.56 K/mm3 (0.9-3.2); Lymphocytes Percent Auto 6.7 % (18.3-44.2); Mean Corpuscular HGB Conc 33.3 g/dl (32-36); Mean Corpuscular Hemoglobin 30.9 pg (26-34); Mean Corpuscular Volume 92.7 fl (80-100); Mean Platelet Volume 9.4 fl (7.4-10.4); Monocytes Absolute Auto 0.8 K/mm3 (0.1-0.6); Monocytes Percent Auto 9.1 % (2.6-8.5); Neutrophils Percent Auto 83.2 % (45.5-73.1); Platelet Count Result 158 k/mm3 (150-375); Red Blood Count 3.27 M/mm3 (4.2-5.4); Red Cell Distribution Width 12.9 % (11.5-14.5); White Blood Count 8.4 K/mm3 (4.5-10.0)
[2022-07-13 05:21] LABS: Anion Gap 7 mmol/L (8-16); Blood Urea Nitrogen 22 mg/dL (7-17); Calcium 8.6 mg/dL (8.4-10.2); Carbon Dioxide 27 mmol/L (22-30); Chloride 101 mmol/L (98-107); Estimated CRCL calculation 47 ml/min; Estimated Glomerular Filt Rate > 60; Glucose 141 mg/dL (65-110); Potassium 3.7 mmol/L (3.4-5.0); Sodium 135 mmol/L (137-145)
[2022-07-13] MEDS: KETOROLAC 15 MG/ML VIAL (*BKC) IV PUSH ×2 (06:08→11:18)
[2022-07-13] MEDS: ceFAZolin 2 GM/D5W 50 ML 2 GM/50 ML BAG IVPB (06:09)
[2022-07-13] MEDS: LEVOTHYROXINE SODIUM 50 MCG TABLET PO (06:09)
[2022-07-13] MEDS: ASPIRIN 325 MG ENTERIC TABLET 650 MG PO (08:41)
[2022-07-13 08:42] VITALS: BP 107/42
[2022-07-13] MEDS: lisinopriL 10 MG TABLET PO (08:42)
[2022-07-13] MEDS: hydroCHLOROthiazide 12.5 MG CAPSULE PO (08:42)
[2022-07-13] MEDS: polyethylene glycoL 3350 17 GM POWD.PACK PO (08:42)
[2022-07-13] MEDS: SENNA/DOCUSATE SODIUM TABLET 2 TAB PO (08:42)
--- NOTE | 2022-07-13 10:18 | P.PNAN_ITS ---
Anes - Prog Note Post-Op Date/Time: 07/13/22 08:49 Cardiovascular status: normal Respiratory status: normal Airway patency: baseline Mental status: baseline Post-Op hydration status: normal Vital Signs: Last Vital Signs Temp 97 F L 07/13/22 03:46 Pulse 84 07/13/22 03:46 Resp 20 07/13/22 03:46 BP 107/42 L 07/13/22 08:42 Pulse Ox 98 07/13/22 03:46 O2 Del Method Room Air 07/13/22 08:45 O2 Flow Rate 8 07/12/22 10:40 Pain Score (VAS): 3 I/O: Intake & Output 07/12/22 07/13/22 07/13/22 23:59 07:59 15:59 Intake Total 240 290 220 Balance 240 290 220 Laboratory Tests 07/13/22 04:52 07/13/22 04:52 07/13/22 07/13/22 04:52 04:52 WBC 8.4 RBC 3.27 L Hgb 10.1 L Hct 30.3 L MCV 92.7 MCH 30.9 MCHC 33.3 RDW 12.9 Plt Count 158 MPV 9.4 Immature Gran % (Auto) 0.5 Neut % (Auto) 83.2 H Lymph % (Auto) 6.7 L [place] % (Auto) 9.1 H Eos % (Auto) 0.1 Baso % (Auto) 0.4 Lymph # (Auto) 0.56 L [place] # (Auto) 0.8 H Eos # (Auto) 0.0 Baso # (Auto) 0.0 Abs Immat Gran (auto) 0.04 H Absolute Neuts (auto) 7.0 H Absolute Nucleated RBC 0.0 Nucleated RBC % 0.0 Sodium 135 L Potassium 3.7 Chloride 101 Carbon Dioxide 27 Anion Gap 7 L BUN 22 H Creatinine 0.80 Estim Creat Clear Calc 47 Estimated GFR > 60 Glucose 141 H Calcium 8.6 Patient Feedback: Patient satisfied with anesthetic care. pt verbalized good pain relief with PNB
[2022-07-13 11:07] VITALS: BP 109/48; PULSE 69; RESP 16; TEMP 36.3; O2SAT 98
[2022-07-13 13:53] VITALS: BP 117/73; PULSE 81; RESP 16; TEMP 36.3; O2SAT 98
--- NOTE | 2022-07-13 15:26 | PM.PNORT ---
Progress Note: A&P Assessment and Plan (1) S/P total knee replacement: Qualifiers: Laterality: right Qualified Code(s): Z96.651 - Presence of right artificial knee joint Code(s): Z96.659 - Presence of unspecified artificial knee joint Status: Acute Plan POD 1 DOING WELL. RECOMMEND DC HOME TODAY AND F/U IN 3 WEEKS. Subjective Subjective Date/Time Seen: 07/13/22 15:26 POD 1 DOING WELL. NO CALF PAIN Exam Extrem: Other: VSS AFEBRILE DRESSING DRY [place] INTACT NEG HOMANS SIGN Objective Data Vital Signs Vital Signs: Vital Signs - 24 hr 07/12/22 17:09 07/12/22 19:55 07/13/22 00:16 Temperature 36.1 C L 36.8 C 36.3 C L Pulse Rate 70 68 84 Respiratory Rate 16 20 20 Blood Pressure 121/53 L 119/50 L 110/54 L Pulse Oximetry 98 100 97 Oxygen Delivery 07/13/22 03:46 07/13/22 03:45 07/13/22 08:42 Temperature 36.1 C L 36.3 C L Pulse Rate 84 84 Respiratory Rate 20 20 Blood Pressure 108/46 L 108/46 L 107/42 L Pulse Oximetry 98 84 L Oxygen Delivery 07/13/22 08:45 07/13/22 11:07 07/13/22 13:53 Temperature 36.3 C L 36.3 C L Pulse Rate 69 81 Respiratory Rate 16 16 Blood Pressure 109/48 L 117/73 Pulse Oximetry 98 98 Oxygen Delivery Room Air Intake/Output Intake/Output: Intake & Output 07/10/22 07/11/22 07/12/22 07/13/22 23:59 23:59 23:59 23:59 Intake Total 1180 750 Balance 1180 750 Meds/Results Medications: Active Medications Generic Name Dose Route Start Last Admin Trade Name Freq PRN Reason Stop Dose Admin Acetaminophen 500 mg 07/12/22 11:14 07/12/22 21:00 Acetaminophen 500 Mg Tablet PO 500 mg Q6H PRN Administration Pain Aspirin 650 mg 07/13/22 09:00 07/13/22 08:41 Aspirin 325 Mg Enteric Tablet PO 650 mg DAILY BERT Administration Diazepam 5 mg 07/12/22 11:14 Diazepam (*Crx) 5 Mg Tablet PO Q8H PRN Spasms Diphenhydramine HCl 25 mg 07/12/22 11:14 Diphenhydramine Hcl Inj 50 Mg/Ml Vial IV PUSH Q6H PRN Itching Hydrochlorothiazide 12.5 mg 07/13/22 09:00 07/13/22 08:42 Hydrochlorothiazide 12.5 Mg Capsule PO 08/12/22 08:59 12.5 mg DAILY BERT Administration Levothyroxine Sodium 50 mcg 07/13/22 06:30 07/13/22 06:09 Levothyroxine Sodium 50 Mcg Tablet PO 50 mcg DAILY@0630 BERT Administration Lisinopril 10 mg 07/13/22 09:00 07/13/22 08:42 Lisinopril 10 Mg Tablet PO 08/12/22 08:59 10 mg DAILY BERT Administration Naloxone HCl 0.1 mg 07/12/22 11:14 Naloxone Hcl 0.4 Mg/Ml Vial IV PUSH Q2M PRN Opiate Reversal Ondansetron HCl 4 mg 07/12/22 11:14 07/12/22 11:48 Ondansetron Inj 4 Mg/2 Ml Vial IV PUSH 4 mg Q4H PRN Administration Nausea And Vomiting Oxycodone/Acetaminophen 1 tablet 07/12/22 11:14 Oxycodone/Acetaminophen (*Crx) 5-325 Mg Tablet PO Q4H PRN Pain Rated 4-6 Oxycodone/Acetaminophen 2 tablet 07/12/22 11:14 Oxycodone/Acetaminophen (*Crx) 5-325 Mg Tablet PO Q6H PRN Pain Rated 7-10 Polyethylene Glycol 17 gm 07/13/22 09:00 07/13/22 08:42 Polyethylene Glycol 3350 17 Gm Powd.Pack PO 17 gm QAM BERT Administration Senna/Docusate Sodium 2 tab 07/12/22 17:00 07/13/22 08:42 Senna/Docusate Sodium Tablet PO 2 tab BID BERT Administration Radiology Results: ITS Impressions Knee X-Ray 07/12/22 10:42 IMPRESSION: 1. Left total knee arthroplasty, negative for postoperative purposes. Labs Labs: Laboratory Results - last 24 hr 07/13/22 07/13/22 04:52 04:52 WBC 8.4 RBC 3.27 L Hgb 10.1 L Hct 30.3 L MCV 92.7 MCH 30.9 MCHC 33.3 RDW 12.9 Plt Count 158 MPV 9.4 Immature Gran % (Auto) 0.5 Neut % (Auto) 83.2 H Lymph % (Auto) 6.7 L [place] % (Auto) 9.1 H Eos % (Auto) 0.1 Baso % (Auto) 0.4 Lymph # (Auto) 0.56 L [place] # (Auto) 0.8 H Eos # (Auto) 0.0 Baso # (Auto) 0.0 Abs Immat Gran (auto) 0.04 H Absolute Neuts (auto) 7.0 H Absol
--- NOTE | 2022-07-13 15:28 | PM.DS ---
DS: Admitting Diagnosis Discharge Date 07/13/22 Admitting Diagnosis LEFT KNEE DJD DS: Discharge Diagnosis Discharge Diagnosis (1) S/P total knee replacement: Qualifiers: Laterality: right Qualified Code(s): Z96.651 - Presence of right artificial knee joint Code(s): Z96.659 - Presence of unspecified artificial knee joint Status: Acute DS: Summary Hospital Course Reason for hospitalization: L TKA Hospital Course: PATIENT WAS ADMITTED S/P TOTAL KNEE ARTHROPLASTY FOR POSTOPERATIVE MEDICAL MANAGEMENT, PAIN CONTROL AND MOBILIZATION WITH PHYSICAL AND OCCUPATIONAL THERAPY. THE PATIENT PROGRESSED WELL WITH PT/OT. LABS AND VITALS REMAINED STABLE AND PAIN WELL CONTROLLED. THE PATIENT HAS BEEN CLEARED TO BE DISCHARGED HOME. FOLLOW UP APPOINTMENT SCHEDULED. DISCHARGE INSTRUCTIONS DISCUSSED AT LENGTH WITH THE PATIENT. MEDICATIONS REVIEWED. Status at Discharge Functional status at discharge: uses cane/walker Time Spent with Patient Time attestation: Total time spent providing and/or coordinating discharge services: DS: Data Data Completed and Pending Labs on day of discharge: Labs from last 24 hours 07/13/22 07/13/22 04:52 04:52 WBC 8.4 RBC 3.27 L Hgb 10.1 L Hct 30.3 L MCV 92.7 MCH 30.9 MCHC 33.3 RDW 12.9 Plt Count 158 MPV 9.4 Immature Gran % (Auto) 0.5 Neut % (Auto) 83.2 H Lymph % (Auto) 6.7 L [place] % (Auto) 9.1 H Eos % (Auto) 0.1 Baso % (Auto) 0.4 Lymph # (Auto) 0.56 L [place] # (Auto) 0.8 H Eos # (Auto) 0.0 Baso # (Auto) 0.0 Abs Immat Gran (auto) 0.04 H Absolute Neuts (auto) 7.0 H Absolute Nucleated RBC 0.0 Nucleated RBC % 0.0 Sodium 135 L Potassium 3.7 Chloride 101 Carbon Dioxide 27 Anion Gap 7 L BUN 22 H Creatinine 0.80 Estim Creat Clear Calc 47 Estimated GFR > 60 Glucose 141 H Calcium 8.6 Discharge Plan Discharge Patient Disposition: Home Health Service Discharge Instructions: Remove the Scopolamine patch that was placed behind your ear in 72 hours or less. Wash your hands after touching. Post Op Total Knee Replacement Instructions Dr. Fawad Tracey [phone] Your dressing will be changed prior to your discharge. You will be sent home with one additional dressing to be changed on post op day 7 by the home health RN. Your renee will be removed on the 14th day after surgery and steri-strips will be placed. Please practice good hand hygiene and do not touch your incision in order to prevent infection. You may shower with your dressing but do not submerge in a bath tub. Do not drive or operate machinery until you are released by Dr. Tracey. Do not walk without a walker for any reason until you are released by Dr. Tracey. Continue to use your ice machine. Please use a towel or pillow case to protect your skin before applying your ice machine. Do NOT place a pillow under your knee. You may use a pillow from the calf down if needed. This will prevent a flexion contracture postoperatively. You may begin use of your CPM machine at home if you have been given one pre-operatively. DO NOT USE WHILE YOU ARE SLEEPING. Your first post op appointment was sent to you via mail preoperatively. If you have any questions or are unable to make your appointment, please contact our office for scheduling questions. Your medications have been sent to your pharmacy. You have been sent home with pain medication. We have also sent you with a stool softener as narcotics can cause constipation. Please keep this in mind during your postoperative recovery. If you are not experiencing regular bowel movements, please contact our office for further instruction. Please contact our office with any questions/concerns regarding your knee at [phone]. Care Coordination: Patient to have [facility] for PT/OT and RN. They can be reached at [phone] and will contact you to schedule their first visit. FAWAD TRACEY M.D.
[2022-07-13] MEDS: ACETAMINOPHEN 500 MG TABLET PO (15:31)
== END 2022-07-13 16:51 | disposition home health service (06) ==
LOC: ANHSURGERY 07:15 → ANH2MED 11:16
PROVIDERS: PCP Family Medicine; Visit Provider Orthopaedic Surgery
PROC: (CPT 27447; principal; 2022-07-12 07:30)
DX: M17.12 Unilateral primary osteoarthritis, left knee (principal); G89.18 Other acute postprocedural pain; I10 Essential (primary) hypertension; E03.9 Hypothyroidism, unspecified
CPT/HCPCS: 27447; 64447; 36415; 73560; 80048; 85025; 86850; 86900; 86901; 97110; 97161; 97165; 97530; 97535; A9270; C1713; C1776; J0171; J0690; J1100; J1170; J1885; J2250; J2270; J2370; J2405; J2704; J2795; J3010; J7030; J7120

== ENCOUNTER 2022-08-08 11:43 | Emergency (ER) | payer MEDICARE, SELFPAY ==
[2022-08-08 11:54] VITALS: BP 143/85; PULSE 91; RESP 16; TEMP 37.2; O2SAT 99
--- NOTE | 2022-08-08 12:01 | ED.FEMALEGU ---
HPI - Female Genitourinary General Chief complaint: Urogenital-Female Stated complaint: uti symptoms Time Seen by Provider: 08/08/22 12:01 Source: patient, family, RN notes reviewed and old records reviewed Mode of arrival: ambulatory Limitations: no limitations History of Present Illness HPI Narrative: 67 year old female who presents to [facility] care with complaints of urinary urgency and burning with urination which she has noted for the past 2 days and wonders if she has UTI which could be attributing to her nausea post knee replacement surgery which was done 07/12/2022. Patient reports that she had UTI 1 week prior to having left total knee replacement and was treated with Amoxicillin and ever since surgery she has had nausea with some emesis. Patient states that she has not took any pain medication for 2 weeks wondering if that is causing nausea but nausea continues.Patient denies any vaginal discharge or itching or any concern for STD exposure. MD elicited complaint: dysuria and other (urgency) Pertinent past history: other (UTI prior to ) Onset (ago): day(s) (2) Female Urogenital Radiation: Non-Radiating Related Data Home Medications Medication Instructions Recorded Confirmed acetaminophen 500 mg tablet 500 mg PO Q6H PRN Pain 09/20/21 08/01/22 acetaminophen-caffeine 500 mg-65 3 tablet PO DAILY 09/20/21 08/01/22 mg tablet Allergies Allergy/AdvReac Type Severity Reaction Status Date / Time No Known Allergies Allergy Verified 08/01/22 09:13 Review of Systems Review of Systems: CONSTITUTIONAL: Denies fever, chills, or sweats. EYES: Denies visual changes, redness, or discharge. ENT: Denies rhinorrhea, congestion, sore throat, or otalgia. CARDIOVASCULAR: Denies chest pain, palpitations, or edema. RESPIRATORY: Denies cough or dyspnea. GASTROINTESTINAL: Denies abdominal pain,positive for nausea with some intermittent emesis after having left knee replacement on denies any diarrhea. GENITOURINARY: positive for frequency of urination and slight burning for past 2 days no visible hematuria noted. SKIN: Denies rash or itching. MUSCULOSKELETAL: Denies back pain,positive for post op pain to left knee, or myalgia. NEUROLOGIC: Denies headache, numbness, or weakness. PSYCHIATRIC: positive for history of anxiety or depression. All systems reviewed & are unremarkable except as noted in HPI and below PMFSH Past Medical History Medical History (Updated 08/08/22 @ 12:58 by Almaz Beck NP) Actinic keratitis Aftercare following right knee joint replacement surgery Arthritis Benign microscopic hematuria Bilateral knee pain Degenerative joint disease of knee H/O seborrheic keratosis HLD (hyperlipidemia) Hypertension Hypothyroidism Left knee DJD Wears glasses Surgical History Surgical History (Updated 08/08/22 @ 12:58 by Almaz Beck NP) History of abdominal hysterectomy History of surgical amputation of finger of right hand Surgery Performed by [facility]. Orthopedic group S/P total knee arthroplasty right S/P total knee replacement left 07/12/2022 Family History Family History Mother Hypertension Other Arthritis Depression Social History Social History Smoking status: Never smoker Second hand tobacco smoke exposure: No Additional smoking assessment comments: DENIES ANY FORM OF TOBACCO USE Alcohol intake: never Substance use: never Substance use type: does not use Additional living arrangements comments: LIVES WITH 7 ADOPTIVE CHILDREN Gender identity (if verbalized by the patient): Female Spiritual care concerns: No Comments At time of signature, agree with nursing past medical, surgical, social and family history. There is no relevant family history pertinent to the presenting complaint Exam Narrative: GENERAL: Well-appearing, well-nourished, and in some ac
== END 2022-08-08 12:30 | disposition home or self-care (01) ==
PROVIDERS: Emergency Provider Registered Nurse; PCP Family Medicine
DX: R30.0 Dysuria (principal); R35.0 Frequency of micturition; R39.15 Urgency of urination; E78.5 Hyperlipidemia, unspecified; I10 Essential (primary) hypertension; E03.9 Hypothyroidism, unspecified; M17.9 Osteoarthritis of knee, unspecified; M19.90 Unspecified osteoarthritis, unspecified site; Z96.653 Presence of artificial knee joint, bilateral
CPT/HCPCS: 81003; 87086; 99213; G0463

== ENCOUNTER 2023-04-14 08:13 | Outpatient (CLI) | payer MEDICARE, SELFPAY ==
[2023-04-14 08:48] LABS: Eosinophils Absolute Auto 0.2 K/mm3 (0-0.3); Eosinophils Percent Auto 3.8 % (0-4.4); Hematocrit 37.2 % (37.0-47.0); Hemoglobin 12.1 g/dL (12.0-15.0); Immature Granulocyte Absolute 0.03 K/mm3 (0.00-0.031); Immature Granulocyte Percent A 0.8 % (0-0.5); Lymphocytes Absolute Auto 0.41 K/mm3 (0.9-3.2); Lymphocytes Percent Auto 10.5 % (18.3-44.2); Mean Corpuscular HGB Conc 32.5 g/dl (32-36); Mean Corpuscular Hemoglobin 30.3 pg (26-34); Mean Platelet Volume 9.2 fl (7.4-10.4); Monocytes Absolute Auto 0.5 K/mm3 (0.1-0.6); Neutrophils Absolute Auto 2.8 K/mm3 (1.3-6.7); Neutrophils Percent Auto 71.9 % (45.5-73.1); Platelet Count Result 206 k/mm3 (150-375); Red Cell Distribution Width 12.6 % (11.5-14.5); White Blood Count 3.9 K/mm3 (4.5-10.0)
[2023-04-14 08:56] LABS: Appearance Urine Clear (Clear); Bacteria Urine None Seen /hpf; Bilirubin Urine Negative (Negative); Blood Urine Negative (Negative); Color Urine Yellow (Yellow); Glucose Urine UA Negative (Negative); Ketones Urine Negative (Negative); Leukocyte Esterase Ur 2+ LEU/UL (NEGATIVE); Nitrate Urine Negative (Negative); Non Pathogenic Casts 0-2; Protein Urine Negative (Negative); RBC Urine 0-2 /hpf (0-2); Specific Grav Ur 1.016 (1.001-1.035); Squamous Epithelial Cell Urine Occasional /hpf (Few); Urobilinogen Urine 0.2 mg/dL (<2.0); WBC Urine 21-50 /hpf (0-3); pH Urine 5.5 (5.0-9.0)
[2023-04-14 08:57] LABS: Add Urine Microscopic? YES
[2023-04-14 09:00] LABS: Alanine Aminotransferase 20 U/L (6-35); Albumin Level 4.7 g/dL (3.5-5.1); Alkaline Phosphatase 69 U/L (38-126); Anion Gap 5 mmol/L (8-16); Aspartate Amino Transferase 24 U/L (14-36); Bilirubin,Total 0.6 mg/dL (0.2-1.3); Blood Urea Nitrogen 25 mg/dL (7-17); Calcium 9.1 mg/dL (8.4-10.2); Carbon Dioxide 32 mmol/L (22-30); Chloride 100 mmol/L (98-107); Cholesterol 259 mg/dL (0-200); Estimated Glomerular Filt Rate > 60; Glucose 88 mg/dL (65-110); HDL Direct 61 mg/dL; Potassium 4.2 mmol/L (3.4-5.0); Sodium 137 mmol/L (137-145); Triglycerides 104 mg/dL (<150)
[2023-04-14 09:02] LABS: Hemoglobin A1C 5.7 % (<5.7)
[2023-04-14 09:04] LABS: Iron 114 ug/dL (37-170)
[2023-04-14 09:13] LABS: LDL Cholesterol Direct 138 mg/dL
[2023-04-14 09:18] LABS: Percent Iron Saturation 40 % (20-50)
== END 2023-04-14 08:14 | disposition home or self-care (01) ==
LOC: ANHLAB 08:15
PROVIDERS: PCP Family Medicine; Visit Provider Physician Assistant
DX: D64.9 Anemia, unspecified (principal); E03.9 Hypothyroidism, unspecified; I10 Essential (primary) hypertension; R73.01 Impaired fasting glucose; R31.1 Benign essential microscopic hematuria; K92.2 Gastrointestinal hemorrhage, unspecified; E78.2 Mixed hyperlipidemia
CPT/HCPCS: 36415; 80053; 80061; 81001; 82607; 82728; 82746; 83036; 83540; 83550; 84443; 85025

== ENCOUNTER 2023-06-23 09:33 | Outpatient (CLI) | payer MEDICARE, SELFPAY ==
[2023-06-23 12:02] LABS: Basophils Percent Auto 0.8 % (0.2-1.2); Eosinophils Absolute Auto 0.1 K/mm3 (0-0.3); Eosinophils Percent Auto 2.7 % (0-4.4); Hemoglobin 12.2 g/dL (12.0-15.0); Immature Granulocyte Absolute 0.02 K/mm3 (0.00-0.031); Immature Granulocyte Percent A 0.4 % (0-0.5); Lymphocytes Absolute Auto 0.59 K/mm3 (0.9-3.2); Lymphocytes Percent Auto 12.4 % (18.3-44.2); Mean Corpuscular HGB Conc 32.1 g/dl (32-36); Mean Corpuscular Hemoglobin 30.8 pg (26-34); Mean Platelet Volume 10.1 fl (7.4-10.4); Monocytes Absolute Auto 0.5 K/mm3 (0.1-0.6); Monocytes Percent Auto 10.5 % (2.6-8.5); Neutrophils Absolute Auto 3.5 K/mm3 (1.3-6.7); Neutrophils Percent Auto 73.2 % (45.5-73.1); Platelet Count Result 213 k/mm3 (150-375); Red Blood Count 3.96 M/mm3 (4.2-5.4); Red Cell Distribution Width 12.6 % (11.5-14.5); White Blood Count 4.8 K/mm3 (4.5-10.0)
[2023-06-23 13:16] LABS: Folic Acid 13.6 ng/mL (2.76->20)
== END 2023-06-23 09:34 | disposition home or self-care (01) ==
PROVIDERS: PCP Family Medicine; Visit Provider Physician Assistant
DX: R31.1 Benign essential microscopic hematuria (principal); E53.8 Deficiency of other specified B group vitamins; D72.819 Decreased white blood cell count, unspecified
CPT/HCPCS: 36415; 82607; 82746; 85025

== ENCOUNTER 2024-01-16 09:35 | Outpatient (CLI) | payer MEDICARE, SELFPAY ==
[2024-01-16 10:42] LABS: Alanine Aminotransferase 17 U/L (6-35); Albumin Level 4.6 g/dL (3.5-5.1); Alkaline Phosphatase 72 U/L (38-126); Anion Gap 8 mmol/L (8-16); Aspartate Amino Transferase 27 U/L (14-36); Bilirubin,Total 0.6 mg/dL (0.2-1.3); Blood Urea Nitrogen 28 mg/dL (7-17); Calcium 9.8 mg/dL (8.4-10.2); Carbon Dioxide 28 mmol/L (22-30); Chloride 97 mmol/L (98-107); Estimated Glomerular Filt Rate > 60; Glucose 92 mg/dL (65-110); Potassium 4.5 mmol/L (3.4-5.0); Sodium 133 mmol/L (137-145)
[2024-01-16 12:41] LABS: Hemoglobin A1C 5.9 % (<5.7)
== END 2024-01-16 09:36 | disposition home or self-care (01) ==
LOC: ANHLAB 09:36
PROVIDERS: PCP Family Medicine; Visit Provider Physician Assistant
DX: E03.9 Hypothyroidism, unspecified (principal); I10 Essential (primary) hypertension; E78.2 Mixed hyperlipidemia; R73.01 Impaired fasting glucose
CPT/HCPCS: 36415; 80053; 83036; 84443

== ENCOUNTER 2024-01-19 14:27 | Outpatient (CLI) | payer MEDICARE, SELFPAY ==
--- NOTE | ~2024-01-19 | CT_ITS ---
EXAMINATION: CT brain wo con DATE: 01/19/2024 15:04 INDICATION: Other chronic pain. Headache radiating to the right eye. Facial tingling. TECHNIQUE: Computed tomography (CT) of the head was performed without intravenous contrast. The mA wa s adjusted according to patient size. Iterative reconstruction technique was employed. The dose-lengt h product was 605.33 mGy-cm. COMPARISON: None FINDINGS: There is no intracranial hemorrhage, acute infarction, or abnormal intracranial mass lesion . The ventricles are normal in size. There is mucosal thickening in right sphenoid sinus with thicken ing and sclerosis of the sinus cleary, consistent with chronic sinusitis. The mastoid air cells are no rmal. The orbits are normal. IMPRESSION: 1. Normal brain. 2. Chronic sphenoid sinusitis. Reviewed, dictated and finalized at location A.
== END 2024-01-19 14:28 | disposition home or self-care (01) ==
LOC: ANHIMG 14:30
PROVIDERS: PCP Family Medicine; Visit Provider Physician Assistant
DX: G89.29 Other chronic pain (principal); R51.9 Headache, unspecified
CPT/HCPCS: 70450

== ENCOUNTER 2024-03-28 09:41 | Outpatient (CLI) | payer MEDICARE, SELFPAY ==
--- NOTE | ~2024-03-28 | XR_ITS ---
EXAMINATION: XR_[id number]_CR DATE: 03/28/2024 10:19 INDICATION: Polyneuropathy, unspecified. TECHNIQUE: 3 views of cervical spine on 4 radiographs were obtained. COMPARISON: None. FINDINGS: There is 2 mm anterolisthesis of C3 on C4 and C4 on C5. Vertebral body heights are normal. There is moderately decreased disc height at C3-C4. There is multilevel severe facet joint osteoarthr itis bilaterally. There is mild central canal stenosis at C3-C4. No prevertebral soft tissue swelling . IMPRESSION: 1. Moderate cervical spondylosis. Reviewed, dictated and finalized at location A.
[2024-03-28 11:07] LABS: Hemoglobin A1C 5.5 % (<5.7)
[2024-03-29 12:08] LABS: Homocysteine 18.8 umol/L (<10.4)
[2024-03-29 20:33] LABS: Red Blood Cell Folate 642 ng/mL RBC (>280)
[2024-03-31 11:58] LABS: Vitamin D 1,25 (OH)2 Total 25 pg/mL (18-72); Vitamin D2 1,25 (OH)2 <8 pg/mL; Vitamin D3 1,25 (OH)2 25 pg/mL
[2024-04-01 09:58] LABS: Vitamin B6 9.3 ng/mL (2.1-21.7)
[2024-04-02 09:14] LABS: Methylmalonic Acid 196 nmol/L (87-318)
[2024-04-02 11:34] LABS: Vitamin B1 15 nmol/L (8-30)
[2024-04-03 20:13] LABS: Immunofixation, Serum Normal pattern.
== END 2024-03-28 09:42 | disposition home or self-care (01) ==
PROVIDERS: PCP Family Medicine; Visit Provider Psychiatry & Neurology Neurology
DX: E11.9 Type 2 diabetes mellitus without complications (principal); G62.9 Polyneuropathy, unspecified; M54.81 Occipital neuralgia; E55.9 Vitamin D deficiency, unspecified; M47.892 Other spondylosis, cervical region
CPT/HCPCS: 36415; 72040; 82652; 82747; 83036; 83090; 83921; 84207; 84425; 84443; 86334

== ENCOUNTER 2024-06-05 09:10 | Outpatient (CLI) | payer MEDICARE, SELFPAY ==
[2024-06-05 09:52] LABS: Glucose Fasting 93 mg/dL
[2024-06-05 10:58] LABS: Glucose 1 Hour 140 mg/dL
[2024-06-05 11:54] LABS: Glucose 2 Hour 73 mg/dL
== END 2024-06-05 09:11 | disposition home or self-care (01) ==
LOC: ANHLAB 09:14
PROVIDERS: PCP Family Medicine; Visit Provider Psychiatry & Neurology Neurology
DX: Z13.1 Encounter for screening for diabetes mellitus (principal)
CPT/HCPCS: 36415; 82951

== ENCOUNTER 2024-06-06 13:00 | Outpatient (CLI) | payer MEDICARE, SELFPAY ==
--- NOTE | 2024-06-06 14:45 | NEURO_ITS ---
Clinical note: Patient has complaints of tingling and numbness in both feet and legs. Patient denies any pain in the lower back. She has had surgery on both knees in the past. summary of findings 1. Left and right peroneal motor distal latencies amplitudes and conduction velocity were within normal limits. 2. Left and right tibial motor distal latencies were normal however amplitudes were mild to moderately decreased. Conduction velocities were normal. 3. right medial plantar and sural sensory were absent wears a left sural sensory distal latency was normal with amplitude was significantly decreased. 4. Left H reflex latency was significantly prolonged compared to the right side but the amplitudes are significantly decreased on both sides. 5. EMG examination was performed using a monopolar needle electrode. Various muscles examined in lower limbs and related paraspinal muscles. No denervation changes were seen however moderately decreased recruitment were noted in distal muscles such as medial gastrocnemius and tibialis anterior as shown below. Paraspinal muscles did not show any denervation changes. 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 It her logic correlation is recommended There is no supportive evidence for lumbosacral radiculopathy however if clinically indicated radiographic correlation may be helpful. Please feel free to call me if any questions regarding this study. Alexia Nichols MD, FAAN, FAANEM Neurology/ Electrodiagnostic Medicine Nerve Conduction Studies Motor Nerve Results Latency Amplitude Segment Distance CV Site (ms) (mV) (cm) (m/s) Norm Ankle 4.1 4.4 Bel Fib Head 11.0 4.2 Bel Fib Head-Ankle 390 57 > 38 Pop Fossa 12.8 4.2 Pop Fossa-Bel Fib Head 75 42 > 42 Ankle 3.7 4.5 Bel Fib Head 10.4 4.1 Bel Fib Head-Ankle 285 43 > 38 Pop Fossa 11.6 4.5 Pop Fossa-Bel Fib Head 80 67 > 42 Ankle 5.5 3.4 Knee 15.2 1.71 Knee-Ankle 390 40 > 39 Ankle 4.2 5.9 Knee 14.1 4.0 Knee-Ankle 390 39 > 39 Sensory Nerve Results Latency (Peak) Amplitude (P-P) Segment Distance CV Comment Site (ms) (?V) (cm) (m/s) Right Medial Plantar (Mixed) Sensory Med Sole-Med Mall NR NR Med Sole-Med Mall 90 NR NO RESPONSE Calf-Lat Mall NR NR Calf-Lat Mall 120 NR NO RESPONSE Calf-Lat Mall 3.4 4 Calf-Lat Mall 120 35 H-Reflex Results M-Lat H Lat H Peak-Peak Amp H-M Lat Site (ms) (ms) mV (ms) Left Tibial H-Reflex Pop Fossa 7.0 40.6 1.13 33.6 Right Tibial H-Reflex Pop Fossa 4.8 34.5 0.85 29.7 Electromyography Side Muscle Nerve Ins Act Fibs Psw Amp Dur Recrt Right BicepsFemS Sciatic Nml Nml Nml Nml Nml Nml Right Semimembranosus Sciatic Nml Nml Nml Nml Nml Nml Right AntTibialis Dp Br Fibular Nml Nml Nml Incr >12ms +2 Right Gastroc Tibial Nml Nml Nml Nml >12ms +2 Right RectFemoris Femoral Nml Nml Nml Nml Nml Nml Left BicepsFemS Sciatic Nml Nml Nml Nml Nml Nml Left Semimembranosus Sciatic Nml Nml Nml Nml Nml Nml Left AntTibialis Dp Br Fibular Nml Nml Nml Incr >12ms +1 Left Gastroc Tibial Nml Nml Nml Nml Nml Nml Left RectFemoris Femoral Nml Nml Nml Nml Nml Nml Left L4 Parasp Rami Nml Nml Nml Nml Nml Nml Left L5 Parasp Rami Nml Nml Nml Nml Nml Nml Right L4 Parasp Rami Nml Nml Nml Nml Nml Nml Right L5 Parasp Rami Nml Nml Nml Nml Nml Nml MTDD
== END 2024-06-06 13:01 | disposition home or self-care (01) ==
LOC: ANHNEURO 13:01
PROVIDERS: PCP Family Medicine; Visit Provider Psychiatry & Neurology Neurology
DX: E11.9 Type 2 diabetes mellitus without complications (principal); G62.9 Polyneuropathy, unspecified; M54.81 Occipital neuralgia
CPT/HCPCS: 95886; 95910

== ENCOUNTER 2024-07-12 12:27 | Outpatient (CLI) | payer MEDICARE, SELFPAY ==
--- NOTE | ~2024-07-12 | XR_ITS ---
Left ankle Technique: AP and lateral views were obtained. Clinical History: Pain Findings: No acute fracture or dislocation is seen. Osseous alignment is anatomic. Ankle mortise and other visualized joint spaces are preserved. Soft tissues are otherwise unremarkable. Impression: Unremarkable left ankle. Reviewed, dictated and finalized at location . Impression: Unremarkable left ankle.
--- NOTE | ~2024-07-12 | XR_ITS ---
Right ankle Technique: AP and lateral views were obtained. Clinical History: Pain Findings: No acute fracture or dislocation is seen. Osseous alignment is anatomic. Ankle mortise and other visualized joint spaces are preserved. Soft tissues are otherwise unremarkable. Impression: Unremarkable right ankle. Reviewed, dictated and finalized at location . Impression: Unremarkable right ankle.
--- NOTE | ~2024-07-12 | XR_ITS ---
Right foot Technique: AP and lateral views were obtained. Clinical History: Pain Findings: No acute fracture or dislocation is seen. Osseous alignment is anatomic. There is moderate to advanced degenerative change of the interphalangeal joints of the second through fourth toes.. Sof t tissues are unremarkable. Impression: Degenerative change in the toes, as detailed above. Reviewed, dictated and finalized at location . Impression: Degenerative change in the toes, as detailed above.
--- NOTE | ~2024-07-12 | XR_ITS ---
Right Hand Technique: PA and lateral views were obtained. Clinical History: Joint pain Findings: No acute fracture or dislocation is seen. Patient is status post amputation of the phalange s of the third digit. There is severe degenerative change of the fourth PIP joint as well as the seco nd, fourth, and fifth DIP joints. There is moderate degenerative change of the interphalangeal joint of the thumb. Soft tissues are unremarkable. Impression: Degenerative changes in the fingers, as detailed above. 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 Reviewed, dictated and finalized at location M. Impression: Degenerative changes in the fingers, as detailed above. 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
--- NOTE | ~2024-07-12 | XR_ITS ---
Left foot Technique: AP and lateral views were obtained. Clinical History: Joint pain Findings: No acute fracture or dislocation is seen. Osseous alignment is anatomic. There is moderate to advanced degenerative change of the second through fourth DIP joints.. Soft tissues are unremarkab le. Impression: Degenerative change in the toes, as above. Reviewed, dictated and finalized at location . Impression: Degenerative change in the toes, as above.
--- NOTE | ~2024-07-12 | XR_ITS ---
Right wrist Technique: PA and lateral views were obtained. Clinical History: Joint pain Findings: No acute fracture or dislocation is seen. Osseous alignment is anatomic. There is advanced degenerative change of the first CMC joint. There is mild to moderate degenerative change of the yaneth caphe joint. Soft tissues are unremarkable. Impression: Degenerative changes, as detailed above. Reviewed, dictated and finalized at location M. Impression: Degenerative changes, as detailed above.
--- NOTE | ~2024-07-12 | XR_ITS ---
Left wrist Technique: PA, oblique, lateral, and ulnar deviation views were obtained. Clinical History: Joint pain Findings: No acute fracture or dislocation is seen. Osseous alignment is anatomic. There is advanced degenerative change of the first CMC joint. There is mild degenerative change of the triscaphe joint. Soft tissues are unremarkable. Impression: Degenerative changes, as detailed above. Reviewed, dictated and finalized at location . Impression: Degenerative changes, as detailed above.
--- NOTE | ~2024-07-12 | XR_ITS ---
Left Hand Technique: PA and lateral views were obtained. Clinical History: Joint pain Findings: No acute fracture or dislocation is seen. There is severe degenerative change of the DIP missy ints of the second through fifth fingers. There is moderate degenerative change of the first CMC join t. Soft tissues are unremarkable. Impression: Advanced degenerative change of the DIP joints in the fingers, as noted above. Reviewed, dictated and finalized at location M. Impression: Advanced degenerative change of the DIP joints in the fingers, as noted above.
== END 2024-07-12 12:28 | disposition home or self-care (01) ==
LOC: ANHIMG 12:32
PROVIDERS: PCP Family Medicine; Visit Provider Internal Medicine
DX: M19.042 Primary osteoarthritis, left hand (principal); M19.041 Primary osteoarthritis, right hand; M19.032 Primary osteoarthritis, left wrist; M19.031 Primary osteoarthritis, right wrist; M19.071 Primary osteoarthritis, right ankle and foot; M19.072 Primary osteoarthritis, left ankle and foot
CPT/HCPCS: 73100; 73120; 73600; 73620

== ENCOUNTER 2024-08-06 06:37 | Day surgery (SDC) | payer MEDICARE, SELFPAY ==
[2024-07-19 14:13] VITALS: BMI 25.4
--- NOTE | ~2024-08-06 | XR_ITS ---
EXAMINATION: XR fluoroscopy no charge DATE: 08/06/2024 7:25 CDT INDICATION: Right C2-3,C3,C4 NERVE BLOCK . TECHNIQUE: 4 fluoroscopic images of the cervical spine were obtained during right C2-3, C3, and C4 ne rve block, performed by Wally Paniagua MD. I was not present during the procedure. Fluoroscopy expo sure time was 13.1 seconds. Air Kerma 0.83 mGy. COMPARISON: None FINDINGS/IMPRESSION: Fluoroscopic documentation of right C2-3, C3, and C4 nerve block. Please refer to the operative note for complete procedural details . Reviewed, dictated and finalized at location K.
--- NOTE | 2024-08-06 05:07 | PM.HPGS ---
History of Present Illness History of Present Illness Consent: Risks, benefits, and alternatives have been discussed and questions answered. Patient agrees to proceed with procedure. Chief complaint: cervical spondylosis, cervicalgia, chronic pain Narrative: Karley aDng is a 69 year old female with chronic, recalcitrant and disabling right cervical pain secondary to degenerative spondylosis with failure to respond to aggressive conservative measures including PT, oral and topical analgesics, opioid and nonopioid analgesics, rest, time and activity/behavioral modification over the past 1-2 years who presents for diagnostic/prognostic medial branch blocks(#1) on the right at C2-3, C3, C4 to address the right C2-3, C3-4 facet joints under fluoroscopic guidance and with contrast control. Review of Systems Review of Systems: Patient denies any new infectious, allergic, cardiopulmonary, neurologic or constitutional symptoms or changes in activity tolerance or exercise capacity including new or progressive SOB/BASSETT, peripheral edema, productive cough, dysuria, nausea/vomiting, diarrhea, weight change, fevers/chills/night sweats, new or progressive neurologic deficit, cognitive or mood changes since last seen, except as documented in the HPI. All systems reviewed & are unremarkable except as noted in HPI and below PMFSH Past Medical History Medical History (Updated 08/06/24 @ 05:13 by Wally Paniagua MD) Actinic keratitis Aftercare following right knee joint replacement surgery PRISCILLA positive Arthritis Benign microscopic hematuria Bilateral knee pain Cervical spondylosis Degenerative joint disease of knee H/O seborrheic keratosis High plasma homocystine HLD (hyperlipidemia) Hypertension Hypothyroidism Left knee DJD Occipital neuralgia of right side Occipital neuralgia of right side Peripheral neuropathy Polyneuropathy Wears glasses Surgical History Surgical History History of abdominal hysterectomy History of surgical amputation of finger of right hand Surgery Performed by [facility]. Orthopedic group S/P total knee arthroplasty right S/P total knee replacement left 07/12/2022 Family History Family History Mother Hypertension Other Arthritis Depression Social History Social History Smoking status: Former smoker Second hand tobacco smoke exposure: Yes Additional smoking assessment comments: DENIES ANY FORM OF TOBACCO USE Alcohol intake: never Substance use: never Substance use type: does not use Do You Feel Safe in your Home?: Yes Lack of Transportation: No Lack of Food: Never True Current Housing: I Have Housing Concerned About Future Housing: No Difficulty Paying Gas/Electric Bills: No Difficulty Paying for Meds: No Currently Unemployed: No Education: Associate Degree Difficulty w/ Childcare or Family Care: No Living arrangements: with family Additional living arrangements comments: LIVES WITH 7 ADOPTIVE CHILDREN Occupation/Education: retired Gender identity (if verbalized by the patient): Female Spiritual care concerns: No Meds Home Medications and Allergies Home Medications Medication Instructions Recorded Confirmed Type acetaminophen 500 mg tablet 500 mg PO Q6H PRN Pain 09/20/21 08/01/24 History levothyroxine 50 mcg tablet 50 mcg PO DAILY #90 tabs 06/14/24 08/01/24 Rx lisinopril 10 1 tablet PO DAILY #90 tabs 06/14/24 08/01/24 Rx mg-hydrochlorothiazide 12.5 mg tablet amitriptyline 25 mg tablet 25 mg PO QHS #90 tabs 08/01/24 08/01/24 Rx duloxetine 30 mg capsule,delayed 90 mg PO DAILY #300 caps 08/01/24 08/01/24 Rx release gabapentin 600 mg tablet 600 mg PO BID #60 tabs 08/01/24 08/01/24 Rx Allergies Allergy/AdvReac Type Severity Reaction Status Date / Time No Known Vasu
--- NOTE | 2024-08-06 05:13 | WPDHPUPDATE1 ---
History and Physical Update Update Date/Time: 08/06/24 05:13 History and Physical has been reviewed, including an updated exam of the patient. There are NO changes in the patient's condition. Risks, benefits, and alternatives have been discussed and questions answered. Patient agrees to proceed with procedure.
--- NOTE | 2024-08-06 05:25 | W.PM.PROC2 ---
Procedure Note - Detailed Date of Procedure 08/06/24 Pre-op Diagnosis cervical spondylosis, cervicalgia, chronic pain Post-op Diagnosis Same Procedure Performed Diagnostic Right Cervical Medial Branch Blocks at C2-3, C3, C4 Blocking the Ipsilateral C2-3, C3-4 Facet Joints Under Fluoroscopic Guidance and with Contrast Control (2 levels blocked). Surgeon Wally Paniagua MD Hammerer Tab None. Anesthesia Local Description of Procedure INFORMED CONSENT: Risks, benefits and alternatives to the procedure were discussed in detail with the patient who expressed explicit understanding and consent to proceed. Patient was informed verbally and in written form regarding the risks associated with the procedure including the low risk of serious infection, bleeding/bruising, allergic reaction, nerve or organ injury, paralysis, procedural site pain or discomfort, worsening pain and/or mobility, failure to treat and/or disfigurement. The patient expressed explicit understanding and consent to proceed. All materials required for the procedure were available prior to procedure start. Site and side was marked prior to procedure and confirmed in the presence of the patient. PROCEDURE IN DETAIL: The patient was brought to the procedural suite and placed in the left lateral decubitus position with head stabilized. Patient was made comfortable with use of pillows under the head and between the knees and ankles. Skin overlying the injection site on the affected side was prepared broadly with tinted 3ml ChloraPrep applicator and draped in a sterile manner. Aseptic technique was used throughout. The endplates of the vertebral bodies at the site(s) of interest were aligned in the lateral fluoroscopic view relative to the patient. Image was optimized for visualization of the pars interarticularis at each target site. Local anesthesia was established by infiltration with approximately 5 mL of 1% lidocaine via a 1-1/2 inch 27- gauge needle. A 25-gauge 3.5 inch Quincke spinal needle was advanced until the needle tip contacted the periosteum of the pars interarticularis at the target site, the right C2-3 medial branch. AP view was utilized to confirm the appropriate placement of the needle tip just lateral to the periosteum at the center point of the pars interarticularis. In the lateral view, 0.25 mL of Omnipaque 300 contrast medium was injected after negative aspiration for CSF, blood or other bodily fluid, showing appropriate extra-articular spread of contrast without evidence of intravascular, foraminal or intrathecal placement. A 0.25 mL solution of 0.5% PF bupivacaine was injected after negative repeat aspiration. Appropriate spread of the injectate was confirmed with washout of previously injected contrast. No parasthesias were elicited. Needle was removed completely intact without difficulty. The same procedure was repeated for all additional intended levels/structures treated on the ipsilateral side, the right C3, C4 medial branches with identical methodology modified to compensate for different location, with similar results and no evidence of complication. Images were saved and documented in the patient chart. Patient's skin was cleaned and sterile bandage applied. The patient tolerated the procedure well. The patient was transported to the recovery area in stable condition where they were observed for an appropriate amount of time prior to discharge, without evidence of complication. Patient was instructed on the appropriate completion of a pain diary over the next 12-24 hours. The patient was instructed to avoid excessive activity for the next 48 hours, including climbing and frequent use of stairs. Showers only for 48 hours. They were instructed not to drive or operate heavy machinery for 24 hours. They are to monitor for severe headaches, fevers, chills, night sweats, erythema/swelling at the site or any other signs of infection, bleeding/bruising, bowel or bladder changes as well as new
[2024-08-06 07:01] VITALS: BP 117/57; PULSE 85; RESP 16; TEMP 36.8; O2SAT 98
[2024-08-06 07:40] VITALS: BP 117/57; PULSE 69; RESP 18; O2SAT 100
[2024-08-06 07:45] VITALS: BP 135/60; PULSE 80; RESP 18; O2SAT 100
[2024-08-06] MEDS: BUPivacaine HCL 0.5% 10 ML AMP 3 ML INFILTRATE (07:50)
[2024-08-06] MEDS: LIDOCAINE HCL 1% PF INJ 5 ML VIAL 3 ML INFILTRATE (07:51)
[2024-08-06 07:59] VITALS: BP 110/59; PULSE 72; RESP 15; O2SAT 99
== END 2024-08-06 08:25 | disposition home or self-care (01) ==
PROVIDERS: PCP Family Medicine; Visit Provider Anesthesiology Pain Medicine
PROC: (CPT 64490; principal; 2024-08-06 07:30)
DX: M47.812 Spondylosis without myelopathy or radiculopathy, cervical region (principal); M54.2 Cervicalgia; G89.4 Chronic pain syndrome
CPT/HCPCS: 64490; 99199

== ENCOUNTER 2024-09-03 09:57 | Day surgery (SDC) | payer MEDICARE, SELFPAY ==
[2024-08-22 10:15] VITALS: BMI 26.4
--- NOTE | ~2024-09-03 | XR_ITS ---
EXAMINATION: XR fluoroscopy no charge DATE: 09/03/2024 11:25 CDT INDICATION: RIGHT C2-3,C3,C4 BLKS . TECHNIQUE: 7 fluoroscopic images and 5 cine clips of the cervical spine were obtained during right C2 -3, C3, C4 nerve blocks, performed by Wally Paniagua MD. I was not present during the procedure. Fl uoroscopy exposure time was 29.9 seconds. Air Kerma 2.15 mGy. COMPARISON: None FINDINGS/IMPRESSION: Fluoroscopic documentation of right C2-3, C3, C4 nerve blocks. Please refer to the operative note for complete procedural details . Reviewed, dictated and finalized at location K.
--- NOTE | 2024-09-03 05:08 | WPDHPUPDATE1 ---
History and Physical Update Update Date/Time: 09/03/24 05:08 History and Physical has been reviewed, including an updated exam of the patient. There are NO changes in the patient's condition. Risks, benefits, and alternatives have been discussed and questions answered. Patient agrees to proceed with procedure.
--- NOTE | 2024-09-03 05:10 | W.PM.PROC2 ---
Procedure Note - Detailed Date of Procedure 09/03/24 Pre-op Diagnosis Cervical spondylosis, cervicalgia Post-op Diagnosis Same Procedure Performed Diagnostic Right Cervical Medial Branch Blocks at C2-3, C3, C4 Blocking the Ipsilateral C2-3, C3-4 Facet Joints Under Fluoroscopic Guidance and with Contrast Control (2 levels blocked). Surgeon Wally Paniagua MD Pullboat Engineer None. Anesthesia Local Description of Procedure INFORMED CONSENT: Risks, benefits and alternatives to the procedure were discussed in detail with the patient who expressed explicit understanding and consent to proceed. Patient was informed verbally and in written form regarding the risks associated with the procedure including the low risk of serious infection, bleeding/bruising, allergic reaction, nerve or organ injury, paralysis, procedural site pain or discomfort, worsening pain and/or mobility, failure to treat and/or disfigurement. The patient expressed explicit understanding and consent to proceed. All materials required for the procedure were available prior to procedure start. Site and side was marked prior to procedure and confirmed in the presence of the patient. PROCEDURE IN DETAIL: The patient was brought to the procedural suite and placed in the left lateral decubitus position with head stabilized. Patient was made comfortable with use of pillows under the head and between the knees and ankles. Skin overlying the injection site on the affected side was prepared broadly with tinted 3ml ChloraPrep applicator and draped in a sterile manner. Aseptic technique was used throughout. The endplates of the vertebral bodies at the site(s) of interest were aligned in the lateral fluoroscopic view relative to the patient. Image was optimized for visualization of the pars interarticularis at each target site. Local anesthesia was established by infiltration with approximately 5 mL of 1% lidocaine via a 1-1/2 inch 27- gauge needle. A 25-gauge 3.5 inch Quincke spinal needle was advanced until the needle tip contacted the periosteum of the pars interarticularis at the target site, the right C2-3 medial branch. AP view was utilized to confirm the appropriate placement of the needle tip just lateral to the periosteum at the center point of the pars interarticularis. In the lateral view, 0.25 mL of Omnipaque 300 contrast medium was injected after negative aspiration for CSF, blood or other bodily fluid, showing appropriate extra-articular spread of contrast without evidence of intravascular, foraminal or intrathecal placement. A 0.25 mL solution of 2.0% PF lidocaine was injected after negative repeat aspiration. Appropriate spread of the injectate was confirmed with washout of previously injected contrast. No parasthesias were elicited. Needle was removed completely intact without difficulty. The same procedure was repeated for all additional intended levels/structures treated on the ipsilateral side, the right C3, C4 medial branches with identical methodology modified to compensate for different location, with similar results and no evidence of complication. Images were saved and documented in the patient chart. Patient's skin was cleaned and sterile bandage applied. The patient tolerated the procedure well. The patient was transported to the recovery area in stable condition where they were observed for an appropriate amount of time prior to discharge, without evidence of complication. Patient was instructed on the appropriate completion of a pain diary over the next 12-24 hours. The patient was instructed to avoid excessive activity for the next 48 hours, including climbing and frequent use of stairs. Showers only for 48 hours. They were instructed not to drive or operate heavy machinery for 24 hours. They are to monitor for severe headaches, fevers, chills, night sweats, erythema/swelling at the site or any other signs of infection, bleeding/bruising, bowel or bladder changes as well as new pain, weakness or numbness in the upper or lower extremity. Should they notice these changes, they are instructed to call our office immediately or report directly to the nearest Emergency Department if no answer or if after posted office hours. COMPLICATIONS: None. COMMENTS: None. CONTRAST WASTED: 29.25mL Omnipaque 300. Complications No immediate complications Condition Stable Disposition Same day [facility] Billing Surgery - Charge Forward: Surgery Billing
[2024-09-03 11:21] VITALS: BMI 26.6
[2024-09-03 11:23] VITALS: BP 122/71; PULSE 75; RESP 16; TEMP 36.6; O2SAT 99
[2024-09-03 11:34] VITALS: BP 125/58; PULSE 74; RESP 20; O2SAT 99
[2024-09-03] MEDS: LIDOCAINE HCL 1% PF INJ 5 ML VIAL 4 ML XX (11:40)
[2024-09-03 11:41] VITALS: BP 113/53; PULSE 74; RESP 17; O2SAT 100
[2024-09-03] MEDS: LIDOCAINE HCL 2% PF INJ 5 ML VIAL 3 ML INFILTRATE (11:45)
[2024-09-03 11:46] VITALS: BP 118/63; PULSE 73; RESP 15; O2SAT 100
== END 2024-09-03 12:09 | disposition home or self-care (01) ==
PROVIDERS: PCP Family Medicine; Visit Provider Anesthesiology Pain Medicine
PROC: (CPT 64490; principal; 2024-09-03 11:45)
DX: M47.812 Spondylosis without myelopathy or radiculopathy, cervical region (principal); M54.2 Cervicalgia
CPT/HCPCS: 64490; 99199

== ENCOUNTER 2024-10-08 05:54 | Day surgery (SDC) | payer MEDICARE, SELFPAY ==
[2024-09-23 08:58] VITALS: BMI 26.6
--- NOTE | 2024-10-07 09:17 | WPDANESEPPF ---
Anes - Initial Pre Proc Eval Procedure: Operation Date: 10/08/24 07:30 Proposed Procedures p Thermal Radiofrequency Ablation Right C2-3, C3, C4 Medial Branch Addressing Right C2-3, C3-4 Facet Joints under Fluoroscopic Guidance with Contrast Control - Wally Paniagua MD Date/Time: 10/07/24 09:17 Surgeon: Wally Paniagua MD Pre Op Diagnosis: Cervical Spondylosis w/o Myelopathy or Patient Data Age: 69 Gender: F Height: 1.55 m Weight: 63.8 kg Allergies Allergy/AdvReac Type Severity Reaction Status Date / Time No Known Allergies Allergy Verified 10/08/24 06:15 Home Medications Medication Instructions Recorded Confirmed Type acetaminophen 500 mg tablet 500 mg PO Q6H PRN Pain 09/20/21 10/08/24 History duloxetine 30 mg capsule,delayed 90 mg PO DAILY #300 caps 08/01/24 10/08/24 Rx release levothyroxine 50 mcg tablet 50 mcg PO DAILY #90 tabs 09/13/24 10/08/24 Rx lisinopril 10 1 tablet PO DAILY #90 tabs 09/13/24 10/08/24 Rx mg-hydrochlorothiazide 12.5 mg tablet Patient hx anesthesia problems: none Family hx anesthesia problems: none Results Review: All pre-operative results and documents have been reviewed as part of the pre-operative evaluation. [facility] Past Medical History Medical History Actinic keratitis Aftercare following right knee joint replacement surgery PRISCILLA positive Arthritis Benign microscopic hematuria Bilateral knee pain Cervical spondylosis Degenerative joint disease of knee H/O seborrheic keratosis High plasma homocystine HLD (hyperlipidemia) Hypertension Hypothyroidism Left knee DJD Occipital neuralgia of right side Occipital neuralgia of right side Peripheral neuropathy Polyneuropathy Wears glasses Surgical History Surgical History History of abdominal hysterectomy History of surgical amputation of finger of right hand Surgery Performed by [facility]. Orthopedic group S/P total knee arthroplasty right S/P total knee replacement left 07/12/2022 Family History Family History Mother Hypertension Other Arthritis Depression Social History Social History Smoking status: Former smoker Tobacco type: cigarettes Second hand tobacco smoke exposure: Yes Additional smoking assessment comments: DENIES ANY FORM OF TOBACCO USE Alcohol intake: never Substance use: never Substance use type: does not use Do You Feel Safe in your Home?: Yes Lack of Transportation: No Lack of Food: Never True Current Housing: I Have Housing Concerned About Future Housing: No Difficulty Paying Gas/Electric Bills: No Difficulty Paying for Meds: No Currently Unemployed: No Education: Associate Degree Difficulty w/ Childcare or Family Care: No Living arrangements: alone Additional living arrangements comments: LIVES WITH 7 ADOPTIVE CHILDREN Occupation/Education: retired Gender identity (if verbalized by the patient): Female Spiritual care concerns: No Anes - Eval Final PreProcedure Day of Procedure 10/07/24 09:17 Patient weight: overweight Heart: regular rate and rhythm Lungs: clear to auscultation Airway: Mallampati scale class III Neurological: alert and oriented Last oral intake: >/= 8 hours ASA classification: III Emergent: no Anesthetic plan: proceed Anesthesia type and monitoring: general GIVS and standard monitoring Results Review: All pre-operative results and documents have been reviewed as part of the pre-operative evaluation. Informed Consent: The patient's anesthetic plan and its attendant risks and benefits were discussed with the patient/family/POA. Questions were solicited and answers provided to the satisfaction of the patient/family/POA.
--- NOTE | ~2024-10-08 | XR_ITS ---
EXAMINATION: XR fluoroscopy no charge DATE: 10/08/2024 08:01 INDICATION: Cervical spondylosis without myelopathy. TECHNIQUE: 98 intraoperative fluoroscopic views of the cervical spine were obtained. I was not presen t. Fluoroscopy exposure time was 28 seconds. COMPARISON: None. FINDINGS: There are needles adjacent to the right posterior elements at C1, C2, and C3. IMPRESSION: 1. Clutier adjacent to the right posterior elements at C1, C2, and C3. Reviewed, dictated and finalized at location A. CTION PRESS OPERATOR
--- NOTE | 2024-10-08 05:04 | WPDHPUPDATE1 ---
History and Physical Update Update Date/Time: 10/08/24 05:04 History and Physical has been reviewed, including an updated exam of the patient. There are NO changes in the patient's condition. Risks, benefits, and alternatives have been discussed and questions answered. Patient agrees to proceed with procedure.
--- NOTE | 2024-10-08 05:06 | W.PM.PROC2 ---
Procedure Note - Detailed Date of Procedure 10/08/24 Pre-op Diagnosis Cervical Spondylosis w/o Myelopathy or Post-op Diagnosis Same Procedure Performed Thermal Radiofrequency Ablation of the Right Cervical Medial Branches at C2-3, C3, C4 to ablate the Ipsilateral C2-3, C3-4 facet joints under Fluoroscopic Guidance (2 levels treated). Surgeon Wally Paniagua MD Tile Layer Helper None. Anesthesia Local (w/ IV Moderate Sedation) Description of Procedure INFORMED CONSENT: Risks, benefits and alternatives to the procedure were discussed in detail with the patient who expressed explicit understanding and consent to proceed. Patient was informed verbally and in written form regarding the risks associated with the procedure including the low risk of serious infection, bleeding/bruising, allergic reaction, nerve or organ injury, paralysis, procedural site pain or discomfort, worsening pain and/or mobility, failure to treat and/or disfigurement. The patient expressed explicit understanding and consent to proceed. All materials required for the procedure were available prior to procedure start. Site and side was marked prior to procedure and confirmed in the presence of the patient. PROCEDURE IN DETAIL: The patient was brought to the procedural suite and placed in the prone position with head stabilized with a horseshoe pillow and cervical ramp. Patient was made comfortable with use of pillows under the head/chest, hips and ankles. Skin overlying the injection site on the affected side(s) was prepared broadly with 10mL tinted ChloraPrep applicator and draped in a sterile manner. Strict aseptic technique was utilized throughout. The endplates of the vertebral bodies at the site(s) of interest were aligned in the AP view. Ipsilateral oblique angulation was utilized to optimize visualization of the pars interarticularis at each target site. Local anesthesia was established by infiltration with approximately 5 mL of 1% lidocaine via a 1-1/2 inch 27-gauge needle. An 18-gauge 100mm RF needle with curved 10mm active tip was advanced in the AP view until the needle tip contacted the periosteum of the pars interarticularis at the target site, right C2-3 parallel to the course of the targeted peripheral nerve branch. Lateral view was utilized to adjust and confirm the appropriate placement of the needle tip just anterior to the center point of the interarticularis, bisecting the distance between adjacent joint spaces. The appropriately-sized RF cannula was inserted into the RF needle and motor stimulation performed with no subjective or objective evidence of recruited muscle activity with stimulation up to 2.0 volts at a frequency of 2Hz. A 1.5 mL solution of 2.0% PF lidocaine was injected via the appropriately positioned RF cannula after negative aspiration. The grounding electrode was confirmed to be in place with good contact and functioning appropriately. After a 90s pause, lesioning was performed to 90 degrees centigrade for 90s ensuring lack of symptoms in the extremity throughout. Needle was withdrawn approximately 1-2 mm and rotated 180 degrees at each level. Lesioning was then repeated in a similar manner as above. The patient tolerated this well. No parasthesias were elicited. Needle was removed completely intact without difficulty. The same procedure was then repeated for all intended levels/ structures on the ipsilateral side, right C3, C4, with identical methodology, modified to compensate for new location, with similar results and no evidence of complication. Images were saved and documented in the patient's chart. The patient's skin was cleaned and sterile bandages applied. The patient tolerated the procedure well. The patient was transported to the recovery area in stable condition where they were observed for an appropriate amount of time prior to discharge, without evidence of complication. The patient was instructed to avoid excessive activity for the next 48 hours, including overhead work, reaching and device/computer usage. Showers only for 48 hours. They were instructed not to drive or operate heavy machinery for 24 hours. They are to monitor for severe headaches, fevers, chills, night sweats, erythema/swelling at the site or any other signs of infection, bleeding/bruising, bowel or bladder changes as well as new pain, weakness or numbness in the upper or lower extremity. Should they notice these changes, they are instructed to call our office immediately or report directly to the nearest Emergency Department if no answer or if after posted office hours. Complications None Condition Stable Disposition PACU [facility] Billing Surgery - Charge Forward: Surgery Billing
[2024-10-08 06:21] VITALS: BP 121/72; PULSE 75; RESP 16; TEMP 36.9; O2SAT 99
[2024-10-08] MEDS: LACTATED RINGERS 1,000 ML 30 ML IV CONT (06:31)
[2024-10-08] MEDS: LIDOCAINE HCL 2% PF INJ 5 ML VIAL INFILTRATE (08:00)
[2024-10-08] MEDS: LIDOCAINE HCL 1% LOCAL INJ 20 ML VIAL 5 ML INFILTRATE (08:00)
[2024-10-08] MEDS: BUPivacaine HCL 0.5% 10 ML AMP INFILTRATE (08:01)
[2024-10-08 08:03] VITALS: BP 122/63; PULSE 69; RESP 15; O2SAT 98
[2024-10-08 08:13] VITALS: BP 118/66; PULSE 67; RESP 16; O2SAT 96
[2024-10-08 08:23] VITALS: BP 122/70; PULSE 65; RESP 16; O2SAT 98
--- NOTE | 2024-10-08 08:47 | WPDANESPN ---
Anes - Prog Note Post-Op Date/Time: 10/08/24 08:47 Cardiovascular status: normal Respiratory status: normal Airway patency: baseline Mental status: baseline Post-Op hydration status: normal Vital Signs: Last Vital Signs Temp 36.9 C 10/08/24 06:21 Pulse 65 10/08/24 08:23 Resp 16 10/08/24 08:23 BP 122/70 10/08/24 08:23 Pulse Ox 98 10/08/24 08:23 O2 Del Method Room Air 10/08/24 08:23 Pain Score (VAS): 0 I/O: Intake & Output 10/07/24 10/08/24 10/08/24 23:59 07:59 15:59 Intake Total 50 Balance 50 Post-procedural complaints: none Patient Feedback: Patient satisfied with anesthetic care. Other Findings: Patient vital signs back to baseline. Patient denies nausea and vomiting. Patient's pain under control. Patient OK for discharge.
== END 2024-10-08 08:36 | disposition home or self-care (01) ==
PROVIDERS: PCP Family Medicine; Visit Provider Anesthesiology Pain Medicine
PROC: (CPT 64633; principal; 2024-10-08 07:30)
DX: M47.812 Spondylosis without myelopathy or radiculopathy, cervical region (principal)
CPT/HCPCS: 64633; 99199

== ENCOUNTER 2025-01-15 10:31 | Emergency (ER) | payer MEDICARE, SELFPAY ==
[2025-01-15 10:49] VITALS: BP 149/87; PULSE 83; RESP 16; TEMP 36.7; O2SAT 100
[2025-01-15 10:56] LABS: EDSTREPNEGPOS1 Negative (Negative)
--- NOTE | 2025-01-15 11:01 | ED_ITS ---
HPI - URI/Sore Throat General Chief Complaint: Upper Respiratory Infection Stated Complaint: Strep Symptoms Time Seen by Provider: 01/15/25 11:01 Source: patient and RN notes reviewed Mode of arrival: ambulatory Limitations: no limitations History of Present Illness HPI Narrative: 69-year-old female presents with concern of for cough, runny nose, postnasal drainage, sore throat, ear pain. She reports she took an [id number] multi symptom cold medicine. She denies fever. Reports exposure to strep MD elicited complaint: sore throat Related Data Home Medications ?Medication ?Instructions ?Recorded ?Confirmed ?Last Taken ?Type acetaminophen 500 mg tablet 500 mg PO Q6H PRN Pain 09/20/21 10/08/24 09/02/24 History gabapentin 300 mg capsule 300 mg PO QHS 11/04/24 Unknown History amitriptyline 25 mg tablet mg 01/15/25 Unknown History Allergies Allergy/AdvReac Type Severity Reaction Status Date / Time No Known Allergies Allergy Verified 01/15/25 11:00 Review of Systems Review of Systems: CONSTITUTIONAL: Denies malaise, chills, sweats, or fever. EYES: Denies visual changes, redness, or discharge. ENT: Reports rhinorrhea, congestion, otalgia and sore throat. CARDIOVASCULAR: Denies chest pain, palpitations, or edema. RESPIRATORY: Reports cough. Denies dyspnea. GASTROINTESTINAL: Denies abdominal pain, nausea, vomiting, diarrhea SKIN: Denies rash or itching. MUSCULOSKELETAL: Denies myalgia. NEUROLOGIC: Denies headache. All systems reviewed & are unremarkable except as noted in HPI and below PMFSH Past Medical History Medical History Peripheral neuropathy Occipital neuralgia of right side Cervical spondylosis High plasma homocystine PRISCILLA positive Polyneuropathy Occipital neuralgia of right side Left knee DJD Aftercare following right knee joint replacement surgery Hypothyroidism HLD (hyperlipidemia) Degenerative joint disease of knee Arthritis Hypertension Wears glasses Bilateral knee pain H/O seborrheic keratosis Actinic keratitis Benign microscopic hematuria Surgical History Surgical History S/P total knee replacement left 07/12/2022 S/P total knee arthroplasty right History of abdominal hysterectomy History of surgical amputation of finger of right hand Surgery Performed by [facility] Orthopedic [facility] Family History Family History Mother Hypertension Other Arthritis Depression Social History Social History Smoking status: Former smoker Tobacco type: cigarettes Second hand tobacco smoke exposure: Yes Additional smoking assessment comments: DENIES ANY FORM OF TOBACCO USE Alcohol intake: never Substance use: never Substance use type: does not use Do You Feel Safe in your Home?: Yes Lack of Transportation: No Lack of Food: Never True Current Housing: I Have Housing Concerned About Future Housing: No Difficulty Paying Gas/Electric Bills: No Difficulty Paying for Meds: No Currently Unemployed: No Education: Associate Degree Difficulty w/ Childcare or Family Care: No Living arrangements: alone Additional living arrangements comments: LIVES WITH 7 ADOPTIVE CHILDREN Occupation/Education: retired Gender identity (if verbalized by the patient): Female Spiritual care concerns: No Comments At time of signature, agree with nursing past medical, surgical, social and [facility] history. There is no relevant family history pertinent to the presenting complaint Exam Narrative: GENERAL: Well-appearing, well-nourished, and in no acute distress. HEAD: Normocephalic EYES: PERRLA, conjunctivae clear ENT: Nares clear, turbinates edematous and erythematous, clear discharge. Mucous membranes moist. TM pearly sheriff with dull light reflex bilaterally; no tragal tenderness. Oropharynx not erythematous without lesions. Tonsils not enlarged and without exudate, no drooling, no hoarseness, no trismus, uvula midline. NECK: Supple. No lymphadenopathy CHEST: Clear to auscultation, breath sounds equal. No wheezing, rhonchi, rales, or stridor. No respiratory distress, speaks in full sentences. HEART: Regular rate and rhythm. No murmur heard. SKIN: Warm, dry, no rash. NEURO: Alert and oriented x3. PSYCH: Normal mood and affect Course Course Emergency Course: Patient is aware of diagnosis, understands and agrees to treatment plan. Anticipatory guidance given. Patient agrees to follow-up as directed and is aware of reasons to seek care at the emergency department. Portions of this record may have been created with voice recognition software Level of Care: Express Care Visit Vital Signs Vital signs: Vital Signs Temperature 98.1 F 01/15/25 10:49 Pulse Rate 83 01/15/25 10:49 Respiratory Rate 16 01/15/25 10:49 Blood Pressure 149/87 H 01/15/25 10:49 Pulse Oximetry 100 01/15/25 10:49 Temperature 98.1 F 01/15/25 10:49 Pulse Rate 83 01/15/25 10:49 Respiratory Rate 16 01/15/25 10:49 Blood Pressure 149/87 H 01/15/25 10:49 Pulse Oximetry 100 01/15/25 10:49 Reviewed. MDM - URI/Sore Throat MDM Narrative Medical decision making narrative: Differential diagnosis considered: Hoang virus, strep pharyngitis, allergic rhinitis, upper respiratory tract infection, sinusitis, rhinosinusitis, nasopharyngitis. viral pharyngitis, otitis media, otitis externa, pneumonia, bro nchitis, viral cough syndrome, viral syndrome, and influenza. Exam findings show no acute concerns or changes; patient is non-toxic appearing and is in no distress. Patient is appropriate for outpatient treatment and follow-up. Lab Data Attestation: I reviewed the patient's lab results. Labs: Lab Results 01/15/25 Range/Units 10:54 POC Grp A Strep Screen Negative (Negative) Critical Care Time Critical Care Time Critical Care Time: No Discharge Plan Discharge Clinical Impression: Upper respiratory infection Patient Disposition: Home, Self-Care Condition: Stable Instructions: Upper Respiratory Infection (ED) Additional Instructions: Your rapid strep swab was negative today at [facility]. A throat culture will be sent to the laboratory for further testing. If the test is positive, you will receive a phone call within 48 hours and an appropriate antibiotic will be initiated at that time. Your symptoms are likely due to a viral illness, which is not treated with antibiotics. Viral symptoms can be present for up to a few weeks. -Alternate Tylenol and Motrin per package directions for fever or pain. -Antihistamine medication such as Benadryl at night and Zyrtec during the day can help improve symptoms. -Eat and drink things that are easy to swallow, like tea or soup, or popsicles to suck on. -Oral rinses such as: Salt water gargles and/or may use topical anesthetic (eg. Chloraseptic spray) or lozenges to relieve dryness or throat pain). -Frequent hand washing or hand organisational psychologist is one of the best ways to prevent spread of infection. -Follow up with primary care provider in 2-3 days if condition is not improving; or seek ER visit if you have trouble breathing, cannot drink enough fluids, have muffled voice, difficulty opening your mouth, or severe swelling. Patient Language: Bahraini Prescriptions: New cetirizine-pseudoephedrine [Zyrtec-D] 5-120 mg tablet extended release 12 hr 1 tablet PO Q12H PRN (Reason: nasal congestion) Qty: 12 0RF dextromethorphan-guaifenesin [Mucinex DM] 60-1,200 mg tablet extended release 12 hr 1 tablet PO Q12H Qty: 12 0RF No Action amitriptyline 25 mg tablet duloxetine 30 mg capsule,delayed release(DR/EC) 90 mg PO DAILY Qty: 300 3RF gabapentin 300 mg capsule 300 mg PO QHS acetaminophen 500 mg Tablet 500 mg PO Q6H PRN (Reason: Pain) Rx Instructions: patient takes 500mg every night for arthritis and sleep levothyroxine 50 mcg tablet 50 mcg PO DAILY Qty: 90 2RF lisinopril-hydrochlorothiazide 10-12.5 mg tablet 1 tablet PO DAILY Qty: 90 2RF Follow-up/Referrals: PHYSICIAN,PROMOTIONAL REPRESENTATIVE [Primary Care Provider] - Time of Disposition: 11:06
== END 2025-01-15 11:08 | disposition home or self-care (01) ==
PROVIDERS: Emergency Provider Nurse Practitioner
DX: J06.9 Acute upper respiratory infection, unspecified (principal); Z87.891 Personal history of nicotine dependence; E03.9 Hypothyroidism, unspecified; E78.5 Hyperlipidemia, unspecified; I10 Essential (primary) hypertension; G62.9 Polyneuropathy, unspecified; M47.812 Spondylosis without myelopathy or radiculopathy, cervical region; M17.12 Unilateral primary osteoarthritis, left knee; Z96.653 Presence of artificial knee joint, bilateral
CPT/HCPCS: 87081; 87880; 99213; G0463

== ENCOUNTER 2025-06-06 07:49 | Outpatient (CLI) | payer MEDICARE, SELFPAY ==
--- OUTSIDE RECORDS SUMMARY | 2025-06-06 07:52 | XMS_ITS | Referral Summary ---
Author Organization [facility] [address] [facility] [address] Address [address] [place] [phone] Phone Care Team Providers Care Chief Dispatcher Name Role Phone Krzysztof Braun MD Primary Care Provider Bharat Russell MD Unavailable [phone] Allergies No known active allergies Medications levothyroxine (SYNTHROID, LEVOTHROID) 25 mcg tablet 12/11/2017 Active lisinopril-hydro CHLOROthiazide (PRINZIDE,ZESTOR ETIC) 10-12.5 mg per tabletIndication s:hypertension 12/06/2017 Acti ve ranitidine (ZANTAC) 150 mg capsule Take 150 mg by mouth 2 (two) times a day. Active folic acid (FOLVITE) 1 mg tablet Take 1 tablet (1 mg total) by mouth daily. Take one tab daily 30 tablet 3 01/23/2018 Active urea (CARMOL) 40 % creamIndications :Hyperkeratosis 01/22/2018 Act crispin Active Problems Problem Noted Date Diagnosed Date Psoriatic arthritis 01/23/2018 Overview (01/23/2018): History of psoriasis Has had long history of joint pain in hands, feet. Symptoms worse in right 4th pip joint with swelling and pain with difficulty moving it, ?dactylitis. No spinal complaints, rash. Has ridging of toenails Has had amputation of right 3rd finger in 2008 due to osteomyelitis. Pain in MTP joints of feet and had recently seen podiatry who did xrays and was told she has degenerative changes in her bilat 2nd-4th mtp joints. Has knee pain with activity and has been told by ortho she needs bilat TKA although she is trying to defer this. Uses ASA which helps well enough Xray bilat hands (01/01/18): moderate-severe degenerative changes in IP joints, CMC, MCP joints; no erosions US right hand/wrist (01/05/18): Moderate synovitis with effusions, synovial thickening and power doppler on examination. Findings greatest in the dorsal 4th PIP joint with a grade 3 effusion with spurring and cortical irregularity which may represent erosive changes. Changes suspicious for erosion also in volar 4th DIP joint. A grade 1 power doppler seen in the volar 2nd DIP joint. There was a grade 1 effusion seen in the dorsal 2nd DIP joint with cortical irregularity suspicious for erosive changes. There was a grade 2 effusion in the radial/scaphoid joint and grade 1 effusion in the long view of the wrist. Synovial thickening seen throughout the wrist, MCP, and PIP joints. Joint space narrowing with spurring seen throughout the PIP and DIP joints. MTX started February 2018 Assessment & Plan (01/23/2018 12:43 PM CDT): Based on history of psoriasis with joint pain and swelling, worse in right 4th pip joint with dactylitis and moderate inflammatory changes with power doppler on US right hand/wrist, worse in 4th PIP joint with grade 3 effusion and findings consistent with erosive changes. Also with pain in knees, and feet. Will initiate MTX 12.5 mg PO weekly and folic acid 1 mg daily. Pt is to have complete dental extraction in 2 weeks and she was instructed not to start MTX until 2 weeks post-op as long as is healing well. Will have her f/u in 2 months for which she should have been on the MTX for 4 weeks. Resolved Problems Problem Noted Date Diagnosed Date Resolved Date Polyarthralgia 12/26/2017 01/23/2018 Overview (01/05/2018): Has had long history of joint pain in hands, feet. Symptoms worse in right 4th pip joint with swelling and pain with difficulty moving it, ?dactylitis. No spinal complaints, rash. Has ridging of toenails Has had amputation of right 3rd finger in 2008 due to osteomyelitis. Pain in MTP joints of feet and had recently seen podiatry who did xrays and was told she has degenerative changes in her bilat 2nd-4th mtp joints. Has knee pain with activity and has been told by ortho she needs bilat TKA although she is trying to defer this. Uses ASA which helps well enough Xray bilat hands (01/01/18): moderate-severe degenerative changes in IP joints, CMC, MCP joints; no erosions US right hand/wrist (01/05/18): Moderate synovitis with effusions, synovial thickening and power doppler on examination. Findings greatest in the dorsal 4th PIP joint with a grade 3 effusion with spurring and cortical irregularity which may represent erosive changes. Changes suspicious for erosion also in volar 4th DIP joint. A grade 1 power doppler seen in the volar 2nd DIP joint. There was a grade 1 effusion seen in the dorsal 2nd DIP joint with cortical irregularity suspicious for erosive changes. There was a grade 2 effusion in the radial/scaphoid joint and grade 1 effusion in the long view of the wrist. Synovial thickening seen throughout the wrist, MCP, and PIP joints. Joint space narrowing with spurring seen throughout the PIP and DIP joints. Assessment & Plan (12/26/2017 11:38 AM MACHINIST MATE): Has had long history of joint pain in hands, feet. Symptoms worse in right 4th pip joint with swelling and pain with difficulty moving it. Has had amputation of right 3rd finger in 2008 due to osteomyelitis. Also with pain in MTP joints of feet and had recently seen podiatry who did xrays and was told she has degenerative changes in her bilat 2nd-4th mtp joints. Has knee pain as well with activity and has been told by ortho she needs bilat TKA although she is trying to defer this. Has no spinal complaints or other joint issues. Does have degenerative changes in her hands with heberdens and bouchards nodes although her right 4th pip joint is swollen and tender and may represent dactylitis. PsA is possible vs RA or other connective tissue disease. Is noted pt denies skin changes although has mild ridging of several toenails. With the degree of OA she may also have erosive OA . Will obtain labs and xrays as below. Obtain US right hand/wrist, to include the PIP and DIP joints of the 2nd-5th digits, to evaluate for inflammatory changes. Will try to track down recent xrays done by podiatry. Pt using aspirin 2-3 times daily which works well enough per pt. F/u 2 weeks. Social History Tobacco Use Types Packs/Day Years Used Date Smoking Tobacco: Never Assessed Personal Safety Answer Date Recorded Getting School Help Needed Not on file 01/20 Comments Unknown Sex and Gender Information Value Date Recorded Sex Assigned at Not on file Legal Sex Female 3:19 PM MACHINIST MATE Gender Identity Not on file Sexual Orientation Not on file Last Filed Vital Signs Vital Sign Reading Time Taken Comments Blood Pressure 120/68 01/23/2018 11:56 AM CDT Pulse 80 01/23/2018 11:56 AM CDT Temperature - - Respiratory Rate - - Oxygen Saturation - - Inhaled Oxygen Concentration - - Weight 59 kg (130 lb) 01/23/2018 11:56 AM CDT Height 160 cm (5' 3) 12/26/2017 9:31 AM MACHINIST MATE Body Mass Index 23.03 12/26/2017 9:31 AM MACHINIST MATE Plan of Treatment Not on file Insurance [address] CHOICE Care Teams Chief Dispatcher Relationship Specialty Start Date End Date Krzysztof Braun MD [address] [facility] [address] [place] [address] PCP - General Family Medicine 10/05/17 Bharat Russell MD [address] [place] [address] Rheumatology 10/05/17
--- OUTSIDE RECORDS SUMMARY | 2025-06-06 07:52 | XMS_ITS | Clinical Summary ---
Author Organization [id number] Address [address] [place] [phone] Phone Care Team Providers Care International Nurse Name Role Phone Krzysztof Braun MD Primary Care Provider Bharat Russell MD Unavailable [phone] Allergies No known active allergies Medications levothyroxine [...] joints. Assessment & Plan (12/26/2017 11:38 AM SUPERVISOR FERTILIZER PROCESSING): Has had long history of joint pain [...] on file Legal Sex Female 3:19 PM SUPERVISOR FERTILIZER PROCESSING Gender Identity Not on file Sexual Orientation [...] 160 cm (5' 3) 12/26/2017 9:31 AM SUPERVISOR FERTILIZER PROCESSING Body Mass Index 23.03 12/26/2017 9:31 AM SUPERVISOR FERTILIZER PROCESSING Plan of Treatment Not on file Insurance [email or web address] CHOICE Care Teams International Nurse Relationship Specialty Start Date End Date Krzysztof Braun MD [address] [facility] [address] [place] [address] PCP - General Family Medicine 10/05/17 Bharat Russell MD [address] [place] [address] Rheumatology 10/05/17
[2025-06-06 09:19] LABS: Hematocrit 40.4 % (37.0-47.0); Hemoglobin 12.7 g/dL (12.0-15.0); Immature Granulocyte Percent A 0.2 % (0-0.5); Lymphocytes Absolute Auto 0.86 K/mm3 (0.9-3.2); Mean Corpuscular HGB Conc 31.4 g/dl (32-36); Mean Corpuscular Hemoglobin 30.2 pg (26-34); Mean Corpuscular Volume 96.0 fl (80-100); Nucleated Red Blood Cells Absolute Auto 0.000 K/mm3 (0.0-0.012); Nucleated Red Blood Cells Perc 0.0 % (0.0-0.2); Platelet Count Result 226 k/mm3 (150-375); Red Blood Count 4.21 M/mm3 (4.2-5.4); White Blood Count 4.5 K/mm3 (4.5-10.0)
[2025-06-06 09:43] LABS: Alanine Aminotransferase 15 U/L (6-35); Albumin Level 4.6 g/dL (3.5-5.1); Alkaline Phosphatase 80 U/L (38-126); Anion Gap 9 mmol/L (4-12); Aspartate Amino Transferase 25 U/L (14-36); Bilirubin,Total 0.7 mg/dL (0.2-1.3); Blood Urea Nitrogen 29 mg/dL (7-17); Calcium 9.4 mg/dL (8.4-10.2); Carbon Dioxide 26 mmol/L (22-30); Chloride 99 mmol/L (98-107); Cholesterol 315 mg/dL (0-200); Estimated Glomerular Filt Rate > 60; Glucose 87 mg/dL (65-110); HDL Direct 66 mg/dL; Potassium 4.1 mmol/L (3.4-5.0); Sodium 134 mmol/L (137-145); Total Protein 8.3 g/dL (6.3-8.2); Triglycerides 122 mg/dL (<150)
[2025-06-06 10:18] LABS: Thyroid Stimulating Hormone 3.470 uIU/mL (0.465-4.680)
[2025-06-06 11:01] LABS: Free T4 Free Thyroxine 0.85 ng/dL (0.78-2.19)
== END 2025-06-06 07:50 | disposition home or self-care (01) ==
PROVIDERS: PCP Family Medicine
DX: E03.9 Hypothyroidism, unspecified (principal); I10 Essential (primary) hypertension; E78.2 Mixed hyperlipidemia
CPT/HCPCS: 36415; 80053; 80061; 84439; 84443; 85025

== ENCOUNTER 2025-08-15 06:56 | Outpatient (CLI) | payer MEDICARE, SELFPAY ==
--- NOTE | ~2025-08-15 | MR_ITS ---
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 Sequences included sagittal T1-weighted FSE, sagittal fluid sensitive FSE STIR, coronal PD-weighted FS FSE, coronal T1- weighted FSE, axial PD-weighted FS FSE, and axial PD-weighted FSE. COMPARISON: Radiographs dated 07/12/2024 FINDINGS: There is callus formation surrounding a healing nondisplaced mid diaphyseal fracture of the second metatarsal. There is a persistent discernible interruption to the low signal intensity cortex along the fracture plane. There is additional marrow edema at the neck of the distal left fourth metatarsal with suggestion of subtle angulation to the lateral sided cortex suspicious for nondisplaced fracture. Additional marrow edema surrounding a linear low signal intensity nondisplaced fracture plane extending across the proximal metaphyseal region of the fifth proximal phalanx. 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 There is scattered subarticular predominant marrow edema in the midfoot with prominent along the dorsal aspect of the navicula and both sides of the second and third tarsal me tatarsal joints as well as at the lateral aspect of the cuboid. No definitive fractures identified in this could be degenerative related to previous noted osteoarthritis or related to posttraumatic bone contusions. There is approximately 2.4 x 1.5 x 0.7 cm ganglion cyst positioned dorsal to the head of the talus which appears to arise from the region of the anterior portion of the subtalar joint. Visualized portion of the flexor and extensor tendons are normal. The Lisfranc ligament complex as well as the collateral ligament complex at the metatarsophalangeal and interphalangeal joints appear intact. IMPRESSION: 1. Healing subacute mid diaphyseal fracture of the left second metatarsal. Consider correlation with plain radiographs for complementary assessment for degree of healing and further there is a solid osseous bridging. 2. Age-indeterminate but likely more recent nondisplaced extra-articular fracture at the base of the fifth proximal phalanx and possibly also the neck of the fourth metatarsals, both without evident periosteal reaction. 3. Additional minimal subarticular marrow edema at multiple tarsal bones in the midfoot without definitive fractures, likely related to mild to moderate polyarticular osteoarthritis. 4. 2.4 x 1.5 x 0.7 cm ganglion cyst dorsal to the head of the talus. Reviewed, dictated and finalized at location A. IMPRESSION: 1. Healing subacute mid diaphyseal fracture of the left second metatarsal. Cons ider correlation with plain radiographs for complementary assessment for degree of healing and further there is a solid osseous bridging. 2. Age-indeterminate but likely more recent nondisplaced extra-articular fractu re at the base of the fifth proximal phalanx and possibly also the neck of the fourth metatarsals, both without evident periosteal reaction. 3. Additional minimal subarticular marrow edema at multiple tarsal bones in the midfoot without definitive fractures, likely related to mild to moderate polya rticular osteoarthritis. 4. 2.4 x 1.5 x 0.7 cm ganglion cyst dorsal to the head of the talus.
--- OUTSIDE RECORDS SUMMARY | 2025-08-15 06:59 | XMS_ITS | Clinical Summary ---
Author Organization [id number] Address [address] [place] [phone] Phone Care Team Providers Care Vest Busheler Name Role Phone Krzysztof Braun MD Primary Care Provider Bharat Russell MD Unavailable [phone] Allergies No known active allergies Medications levothyroxine [...] joints. Assessment & Plan (12/26/2017 11:38 AM DIRECTOR TALENT MANAGEMENT): Has had long history of joint pain [...] on file Legal Sex Female 3:19 PM DIRECTOR TALENT MANAGEMENT Gender Identity Not on file Sexual Orientation [...] 160 cm (5' 3) 12/26/2017 9:31 AM DIRECTOR TALENT MANAGEMENT Body Mass Index 23.03 12/26/2017 9:31 AM DIRECTOR TALENT MANAGEMENT Plan of Treatment Not on file Insurance [employer] CHOICE Care Teams Vest Busheler Relationship Specialty Start Date End Date Krzysztof Braun MD [address] [facility] [address] [place] [address] PCP - General Family Medicine 10/05/17 Bharat Russell MD [address] [place] [address] Rheumatology 10/05/17
== END 2025-08-15 06:57 | disposition home or self-care (01) ==
PROVIDERS: PCP Family Medicine; Visit Provider Podiatrist Foot & Ankle Surgery
DX: S92.32 Fracture of second metatarsal bone (principal); X58.XXXD Exposure to other specified factors, subsequent encounter
CPT/HCPCS: 73718